=== PATIENT | female | born 1965 | race Caucasian/White ===

== ENCOUNTER 2019-05-06 21:34 | Inpatient (IN) | payer MEDICARE ==
[~2019-05-06] VITALS: Ht 162.6 cm; Wt 92.5 kg
--- OUTSIDE RECORDS SUMMARY | 2019-05-06 21:37 | XMS REPORT | Summary of Care ---
Author Author Paloma Lino Organization Unknown Address [facility] Phone Unavailable Care Team Providers Care Weed Controller Name Role Phone Holland Paloma Unavailable Unavailable ROSA LEYVA M.D. 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 * Start : 03-Feb-2018 Active 21 Tablet Pack Meloxicam TABS * Refills: 0 Active Cyclobenzaprine HCl TABS * Refills: 0 Active Adderall TABS * Refills: 0 Active Tylenol Extra Strength TABS * Refills: 0 Active Allergies and Adverse Reactions Name Dates Details No Known Drug Allergies (Allergy) Status: Active Past Medical History Name Dates Details History of arthritis (V13.4, Z87.39) Status: Resolved History of back pain (V13.59, Z87.39) Status: Resolved Procedures Procedure Dates Details History of Hysterectomy Completed Immunization Name Dates Details Immunizations not documented Family History Name Dates Details Family history of diabetes mellitus (V18.0, Z83.3) Comments: Family History Status: Active Family history of hypertension (V17.49, Z82.49) Comments: Family History Status: Active Family history of arthritis (V17.7, Z82.61) Comments: Family History Status: Active Social History Name Dates Details Unknown if ever smoked Vital Signs Date Test Result Details No Known Vitals to report Results Date Description Value Details Results not documented Plan of Care Name Dates Details Planned Observations Planned Goals not documented Instructions Name Dates Details Instructions not documented Encounters Appointment; ROSA LEYVA M.D. Encounter Diagnosis: Problem not documented On: 30-Dec-2017 10:30 Appointment; ROSA LEYVA M.D. Encounter Diagnosis: Problem not documented On: 03-Feb-2018 8:15 Appointment; ROSA LEYVA M.D. Encounter Diagnosis: Problem not documented On: 14-Apr-2018 8:45 Appointment; ROSA LEYVA M.D. Encounter Diagnosis: Problem not documented On: 20-Sep-2018 10:45
--- OUTSIDE RECORDS SUMMARY | 2019-05-06 21:37 | XMS REPORT | Encounter Summary ---
Author Organization Unknown Address [address] [place] [id number] Phone [phone] Care Team Providers Care Road Passenger Firer Name Role Phone Dr. Abraham Dumas 3 [phone] Lucrecia Shah MD 3 [phone] Eusebio Green MD 115 [phone] Phu Isaac MD 121 [phone] Sammy Haney MD 129 [phone] Cholo Allen MD 212 [phone] Reason for Visit Bilateral ear pain/problem Instructions 1. Staghorn calculus sulfamethoxazole 800 mg-trimethoprim 160 mg tablet urinalysis, dipstick culture, urine 2. Excessive cerumen in ear canal cerumen removal (PROC) 3. Body mass index 30+ - obesity body mass index: care instructions learning about healthy weight 4. Screening for malignant neoplasm of colon fecal occult blood, stool 5. Osteoarthritis of hip 6. Benign essential hypertension 7. Chronic pain syndrome Discussion Note: None recorded. Plan of Care Reminders Provider Appointments Est Patient 01/07/2019 10:30AM Lucrecia Shah MD Lab Fecal Occult Blood, Stool 11/19/2018 [facility] Laboratory Urinalysis, Dipstick 11/19/2018 [facility] Culture, Urine 11/19/2018 [facility] Referral None recorded. Procedures Cerumen Removal (PROC) 11/19/2018 [facility]) [place] Surgeries None recorded. Imaging None recorded. Medications Name Start Date Adderall 20 mg tablet Take 1 tablet twice a day by oral route for 30 days. amoxicillin 500 mg capsule bid atorvastatin 10 mg tablet Take 1 tablet every day by oral route for 90 days. chlorhexidine gluconate 0.12 % mouthwash SWISH AND SPIT 10 ML TWICE DAILY NEEDED fluticasone propionate 50 mcg/actuation nasal spray,suspension SHAKE LIQUID AND USE 1 SPRAY IN EACH NOSTRIL EVERY DAY NEEDED lisinopril 10 mg-hydrochlorothiazide 12.5 mg tablet Take 1 tablet every day by oral route. lubricant eye drops PRN Nasacort 24HR - PRN tizanidine 4 mg tablet TAKE 1 TABLET BY MOUTH EVERY 8 HOURS DIRECTED tramadol 50 mg tablet Take 1 tablet every 8 hours by oral route as needed. Tylenol PM 4 at night - otc zolpidem 10 mg tablet Take 1 tablet every day by oral route at bedtime. zolpidem 5 mg tablet Take 1 tablet every day by oral route for 30 days. Medications Administered None recorded. Vitals Height Weight BMI Blood Pressure 5 ft 4 in 209.8 lbs 36 kg/m2 (1) 120/84 mm[Hg] (2) 132/84 mm[Hg] Lab Results Date Name Specimen Result Interpretation Description Value Range Status Address 11/19/2018 Culture, Urine Culture, Urine, Routine see note Final [facility]: [address] [facility] [address], [place] 11/19/2018 Urinalysis, Dipstick Color Color yellow [facility] ([facility]) [place]: [address] [place] Color Appearance clear [facility] ([facility]) [place]: [address] [place] Color Glucose negative [facility] ([facility] [place]: [address] [place] Color Bilirubin small [facility] ([facility] [place]: [address] [place] Color Ketones [facility] ([facility] [place]: [address] [place] Color Specific [place] 1.030 [facility] ([facility] [place]: [address] [place] Color Blood moderate [facility] ([facility] [place]: [address] [place] Color PH 5.5 [facility] ([facility] [place]: [address] [place] Color Protein 30 [facility] ([facility]) [place]: [address] [place] Color Urobilinogen 0.2 [facility] ([facility]) [place]: [address] [place] Color Nitrites negative [facility] ([facility]) [place]: [address] [place] Color Leukocytes small [facility] ([facility]) [place]: [address] [place] [address] Color Note ketones 15 mg [facility] ([facility]) [place]: [address] [place] [address] 10/22/2018 Erythrocyte Sedimentation Rate by Westergren Method High Sed Rate by Modified Westergren 46 mm/h < or=30 mm/h Final [facility] Laboratory: [address] [place] [address] 10/22/2018 CBC W/ Auto Diff Wbc 8.60 x10*3/L 3.98-10.04 x10*3/L Final [facility]: [address] Rbc 4.14 10*12/L 3.93-5.22 10*12/L Final [facility] Laboratory: [address] Hemoglobin 12.40 g/dL 11.20-15.70 g/dL Final [facility] Laboratory: [address] Hematocrit 40.1 % 34.1-44.9 % Final [facility] Laboratory: [address] Mcv 96.9 fL 80.0-100.0 fL Final [facility]: [address] Mch 30.0 pg 25.6-32.2 pg Final [facility]: [address] Low Mchc 30.9 g/dL 32.2-35.5 g/dL Final [facility]: [address] RDW-SD 46.2 fL 36.4-46.3 fL Final [facility]: [address] Platelet Count 347.0 k/uL 182.0-369.0 k/uL Final [facility]: [address] Mpv 11.1 fL 7.5-11.5 fL Final [facility]: [address] Neut% 63.5 % 34.0-71.1 % Final [facility]: [address] Lymph% 29.5 % 19.3-51.7 % Final [facility]: [address] Mon% 5.3 % 4.7-12.5 % Final [facility]: [address] [place] Eos% 1.5 % 0.7-5.8 % Final [facility]: [address] [place] Baso% 0.2 % 0.1-1.2 % Final [facility]: [address] [place] Neut# 5.5 x10*3/L 1.6-6.1 x10*3/L Final [facility]: [address] [place] Lymph# 2.5 x10*3/L 1.2-3.7 x10*3/L Final [facility]: [address] [place] Mon# 0.5 x10*3/L 0.2-0.9 x10*3/L Final [facility] [address] [facility] Eos# 0.13 x10*3/L 0.04-0.36 x10*3/L Final [facility]: [address] [place] Baso# 0.02 x10*3/L 0.01-0.08 x10*3/L Final [facility] [address] [facility] 10/22/2018 CMP, Serum or Plasma Alt 13 U/L 0-55 U/L Final [facility]: [address] Ast 17 U/L 5-34 U/L Final [facility]: [address] [place] [address] Bun 13.9 mg/dL 9.8-20.1 mg/dL Final [facility] Laboratory: [address] [place] [address] Alk Phos 119 unit/L 40-150 unit/L Final [facility]: [address] [facility] Glucose 79 mg/dL 70-99 mg/dL Final [facility] [address] [facility] Albumin 4.4 g/dL 3.5-5.0 g/dL Final [facility]: [address] Creatinine 0.97 mg/dL 0.57-1.11 mg/dL Final [facility]: [address], [place] eGFR Non- >60 mL/min/1.73m2 Final [facility]: [address], [place] Total Bilirubin 0.5 mg/dL 0.2-1.2 mg/dL Final [facility]: [address] [place] eGFR - >60 mL/min/1.73m2 Final [facility]: [address], [place] Sodium 142 mEq/L 136-145 mEq/L Final [facility]: [address], [place] Potassium 4.1 mEq/L 3.5-5.1 mEq/L Final [facility]: [address], [place] Chloride 106 mmol/L 98-107 mmol/L Final [facility] Laboratory: [address], [place] Total Protein 7.4 g/dL 6.4-8.3 g/dL Final [facility]: [address], [place] Calcium 10.2 mg/dL 8.4-10.2 mg/dL Final [facility]: [address], [place] Co2 23.5 mmol/L 22.0-29.0 mmol/L Final [facility]: [address], [place] Anion Gap 13 calc Final [facility]: [address], [place] Allergies Code Code System Name Reaction Severity Status Onset NKDA Problems Name Status Onset Date Source Attention Deficit Hyperactivity Disorder Active 12/23/2017 Chronic Pain Syndrome Active 12/23/2017 Multiple Joint Pain Active 12/23/2017 Walking Disability Active 12/23/2017 Chronic Neck Pain Active 12/23/2017 Chronic Low Back Pain Active 12/23/2017 Paresthesia of Lower Extremity Active 12/23/2017 Body Mass Index 40+ - Severely Obese Active 12/23/2017 Mixed Hyperlipidemia Active 03/25/2018 Periodontitis Active 03/25/2018 Seasonal Allergic Rhinitis Active 07/23/2018 Benign Essential Hypertension Active 07/24/2018 Staghorn Calculus Active 08/28/2018 Osteoarthritis of Hip Active 08/28/2018 Procedures Date Name Performed by 07/20/2007 Orthopedic Surgery Information not available 07/20/2006 Orthopedic Surgery Information not available 07/20/1996 Hysterectomy (Partial) Information not available Vaccine List Vaccine Type influenza, injectable, quadrivalent 03/21/2017 influenza, injectable, quadrivalent, preservative free 04/29/20180.5 mL Social History Smoking Status Former Smoker Past Encounters 12/10/2018 Attention Deficit Hyperactivity Disorder; Staghorn Calculus; Body Mass Index 30+ - Obesity; Chronic Pain Syndrome; Referral to Embroidery Patternmaker Declined by Subject; Insomnia; Osteoarthritis of Hip; Benign Essential Hypertension; Mixed Hyperlipidemia Lucrecia Shah MD: [address] [place] [phone], Ph. 11/19/2018 Staghorn Calculus; Excessive Cerumen in Ear Canal; Body Mass Index 30+ - Obesity; Screening for Malignant Neoplasm of Colon; Osteoarthritis of Hip; Benign Essential Hypertension; Chronic Pain Syndrome Lucrecia Shah MD: [address] [place] [phone], Ph. 10/22/2018 Staghorn Calculus; Osteoarthritis of Hip; ESR Raised; Benign Essential Hypertension; Chronic Pain Syndrome; Body Mass Index 30+ - Obesity; Insomnia; Attention Deficit Hyperactivity Disorder; Screening for Malignant Neoplasm of Colon; Immunization Refused; Mixed Hyperlipidemia; Xerostomia Lucrecia Shah MD: [address] [place] [phone], Ph. History of Present Illness Note:53yo female presents for one-month follow-up. Last visit 10/22/18. <div>Here today with bilateral ear fullness & 'crackling' sound, possibly ear infection.</div><div>Recently finished Abx 11/06-11/16/18 Cipro for UTI. Has noticed heat & redness of skin of lower arms. No itch or hives. Ears also get very warm.</div><div>
</div><div>Next appt with urology, Dr Green on 12/02/18, for staghorn calculus of left kidney. Had lithotripsy of right kidney on 09/29/18. Still with intermittent, recurrent UTI infections. UA in office today with moderate blood, small wbcs. Will send urine for culture & cover with empiric Bactrim. Recently finished course of Cipro, but has known stone in left kidney. NKDA.</div><div>
</div><div>Previously:</div><div>On 09/29/18 had lithotripsy on right kidney for two small non-obstructing kidney stones in right kidney (8mm & 5mm). Was at [facility] with Dr Green, urologist. Had started amoxicillin the night prior for UTI- took for [address] Green in follow-up yesterday & he wants to repeat CT scan before trying to clear large partially obstructing 2.6cm left intrarenal staghorn calculus with moderate left cortical thinning suggesting chronic obstruction (per CT scan 08/24/18). Pt notes no stones seen in strainer.
</div><div><div>
</div><div> Pt had to postpone appt with Dr Cecil Gracia, ortho, for possible bilateral hip r eplacement surgeries. Was seen by ortho Dr Lala Allen, at [facility] and CT scan 08/24/18 was severe bilateral hip osteoarthritis with suspicion of early, bilateral femoral head ischemic necrosis. Dr Villa has referred pt to Dr Cecil Gracia.</div>< div><div><div>
</div><div>Previously:
</div><div>Pt had follow-up with Dr. Haney, neurology on Apr 20, 2018, for idiopathic polyneuropathy- per pt, both the MRI brain from 03/19/18 and the EMG/NCS on 04/13/18 were both normal. Per pt, Dr. Haney is wondering about movement disorder/chorea and has referred pt to [facility] Movement disorder clinic, Dr. Peace Bray for evaluation.
</div ><div>
</div><div>Was seen in past by pain management, Dr Federico Sewell at [facility].</div><div>Was seen in past by rheumatology (Dr Anderson) for elevated ESR. On prednisone in past. Had elevated ESR of 99 (was 68 in [facility] office in December 2017). </div><div>
</div><div>Needs tramadol & refill of tizanidine for pain. Was told to avoid NSAIDs due to kidney fxn by Dr Green - discontinue diclofenac
</div><div>Ortho said no more steroid injections until hip replacements at pain management.</div></div></div></div> Review of Systems:ROS as noted in the HPI Review of Systems Comprehensive General Adult ROS Reported By: Patient Constitutional: Constitutional: no fever Eyes: Eyes: no vision change ENMT: Ears: no difficulty hearing, ear pain Cardiovascular: Cardiovascular: no chest pain Respiratory: Respiratory: no cough, no wheezing, no shortness of breath Gastrointestinal: Gastrointestinal: no abdominal pain Genitourinary: Genitourinary: no incontinence, increased urinary frequency, hematuria Musculoskeletal: Musculoskeletal: muscle aches, muscle weakness, arthralgias/joint pain, back pain Neurologic: Neurologic: no loss of consciousness, no headaches Psychiatric: Psych: no depression, no alcohol abuse, no anxiety, no suicidal thoughts Physical Exam General Adult Exam (Female), Musculoskeletal and Joint Exam Reported By: Patient Constitutional: General Appearance: healthy-appearing, well-developed, obese. Level of Distress: NAD; Pleasant, conversant female. Appropriate to chronic situation. Ambulation: limited ambulation, ambulation with walker Psychiatric: Mental Status: active and alert, normal mood, normal affect Eyes: Lids and Conjunctivae: non-injected. Pupils: PERRLA. EOM: EOMI. Sclerae: non-icteric ENMT: Ears: EAC ceruminous. Hearing: hearing decreased. Oropharynx: moist mucous membranes Neck: Thyroid: non-tender, no nodules Lungs: Respiratory effort: no dyspnea. Auscultation: breath sounds normal, good air movement, no wheezing, no rales/crackles Cardiovascular: Heart Auscultation: RRR, normal S1, normal S2, no murmurs. Neck vessels: no carotid bruits Abdomen: Bowel Sounds: normal. Inspection and Palpation: soft Musculoskeletal:: Motor Strength and Tone: abnormal motor strength, hypotonicity. Joints, Bones, and Muscles: no contractures, limited ROM, tenderness. Extremities: no edema, no varicosities. Right Shoulder: tenderness, reduced ROM. Right Hip: reduced ROM, tenderness. Left Hip: reduced ROM, tenderness. Right Knee: reduced ROM. Left Knee: reduced ROM Neurologic: Gait and Station: irregular gait; significant limp. weakness r>l of legs Skin: Inspection and palpation: no rash
--- OUTSIDE RECORDS SUMMARY | 2019-05-06 21:37 | XMS REPORT | Encounter Summary ---
Author Organization Unknown Address [address] [place] [address] Phone [phone] Care Team Providers Care Candy Rolling Machine Operator Name Role Phone Dr. Abraham Dumas 3 [phone] Lucrecia Shah MD 3 [phone] Dr. Lucrecia Shah 3 [phone] Eusebio Green MD 115 [phone] Phu Isaac MD 121 [phone] Sammy Haney MD 129 [phone] Cholo Allen MD 212 [phone] Reason for Visit other - see typed reason Instructions 1. Attention deficit hyperactivity disorder Adderall 20 mg tablet Adderall 20 mg tablet Adderall 20 mg tablet 2. Body mass index 30+ - obesity body mass index: care instructions learning about healthy weight 3. Influenza vaccination Flublok Quad [id number] (PF) 180 mcg (45 mcg x 4)/0.5 mL IM syringe 4. Immunization Adacel (Tdap Adolesn/Adult)(PF)2 Lf-(2.5-5-3-5)-5 Lf/0.5 mL IM syringe 5. Benign essential hypertension 6. Staghorn calculus 7. Osteoarthritis of hip Discussion Note: None recorded. Plan of Care Reminders Provider Appointments Est Patient 05/27/2019 10:45AM Lucrecia Shah MD Lab None recorded. Referral None recorded. Procedures None recorded. Surgeries None recorded. Imaging None recorded. Medications Name Start Date Adderall 20 mg tablet Take 1 tablet twice a day by oral route for 30 days. atorvastatin 10 mg tablet Take 1 tablet every day by oral route for 90 days. chlorhexidine gluconate 0.12 % mouthwash SWISH AND SPIT 10 ML BY MOUTH TWICE DAILY NEEDED fluticasone propionate 50 mcg/actuation nasal spray,suspension SHAKE LIQUID AND USE 1 SPRAY IN EACH NOSTRIL EVERY DAY NEEDED lisinopril 10 mg-hydrochlorothiazide 12.5 mg tablet Take 1 tablet every day by oral route. lubricant eye drops PRN Nasacort 24HR - PRN omeprazole 40 mg capsule,delayed release Take 1 capsule every day by oral route in the morning. preservative free eye drops QD PRN ranitidine 150 mg tablet Take 1 tablet every day by oral route in the evening for 30 days. tizanidine 4 mg tablet TAKE 1 TABLET BY MOUTH EVERY 8 HOURS DIRECTED tramadol 50 mg tablet Take 1 tablet every 8 hours by oral route as needed. Tylenol PM 4 at night - otc zolpidem 10 mg tablet Take 1 tablet every day by oral route at bedtime. Medications Administered None recorded. Vitals Height Weight BMI Blood Pressure 5 ft 4 in 204.4 lbs 35.1 kg/m2 (1) 144/90 mm[Hg] (2) 116/72 mm[Hg] Lab Results None recorded. Allergies Code Code System Name Reaction Severity [...] Active 08/28/2018 Procedures Date Name Performed by 12/22/2018 Kidney Stone Analysis Information not available 07/20/2007 Orthopedic Surgery Information not available 07/20/2006 Orthopedic Surgery Information not available 07/20/1996 Hysterectomy (Partial) Information not available Vaccine List Vaccine Type influenza, injectable, quadrivalent 03/21/2017 influenza, injectable, quadrivalent, preservative free 04/29/20180.5 mL influenza, recombinant, quadrIvalent,injectable, preservative free 03/25/20190.5 mL Tdap 03/25/20190.5 mL Social History Tobacco Smoking Status Former Smoker Past Encounters 03/25/2019 Attention Deficit Hyperactivity Disorder; Body Mass Index 30+ - Obesity; Influenza Vaccination; Immunization; Benign Essential Hypertension; Staghorn Calculus; Osteoarthritis of Hip Lucrecia Shah MD: [address] [place] [address], Ph. 02/25/2019 Body Mass Index 30+ - Obesity; Obesity; Chronic Pain Syndrome; Attention Deficit Hyperactivity Disorder; Insomnia Lucrecia Shah MD: [address] [place] [address], Ph. History of Present Illness Note:53yo female presents for one-month follow-up. Last visit 02/25/19. Since last visit, pt saw Dr Green on 02/28/19 for follow-up. Was told she had calcium oxalate stones. Has brought one into office today that she collected on 03/15/19. At time of visit with Dr Green was found to have UTI - treated with cipro for 7days. No further symptoms of dysuria.<div>Will plan to have KUB, then f/u with Dr Green. Last ureteral stent on left placed 02/02/19 - will need to be removed. Needs release from Dr Green before following up on hip. Told to drink extra fluids - 3 liters/day of water is goal. Avoiding high oxalate food - less chocolate, peanuts.</div><div>Next visit with Dr Green on 04/25/19.</div><div> BP 116/72 in office today.
<div>Here for refill of Adderall. TPMP reviewed.< div>
<div>Previously:</div><div><div><div>Still with hip pain & waiting to f/u for first appt with Dr Cecil Gracia ortho [facility].</div><div>Pt had to postpone appt with korina Aguirre, for possible bilateral hip replacement surgeries. Was seen by ortho Dr Lala Allen, at [facility] and CT scan 08/24/18 was severe bilateral hip osteoarthritis with suspicion of early, bilateral femoral head ischemic necrosis. Dr Villa has referred pt to Dr Cecil Gracia. Ortho said no more steroid injections until hip replacements at pain management.</div><div>
</div><div>Previously:
</div><div><div>On 09/29/18 had lithotripsy on right kidney for two small non-obstructing kidney stones in right kidney (8mm & 5mm). Was at [facility] with Dr Green, urologist. Had CT scan with large p artially obstructing 2.6cm left intrarenal staghorn calculus with moderate left cortical thinning suggesting chronic obstruction (per CT scan 08/24/18). Pt notes no stones seen in strainer.
</div><div><div>
</div><div>Pt had follow-up with Dr. Haney, neurology on Apr 20, 2018, for idiopathic polyneuropathy- per pt, both the MRI brain from 03/19/18 and the EMG/NCS on 04/13/18 were both normal. Per pt, Dr. Haney is wondering about movement disorder/chorea and has referred pt to [facility] Movement disorder clinic, Dr. Peace Bray for evaluation.
</div><div><div>
</div><div>Was seen in past by pain management, Dr Federico Sewell at [facility].</div><div>Was seen in past by rheumatology (Dr Anderson) for elevated ESR. On prednisone in past. Had elevated ESR of 99 (was 68 in [facility] office in December 2017). </div></div></div></div></div><div>Seen by psych in past - Dr. Crow is no longer in pt's insurance network. Was with him for 12yrs. </div></div></div></div></div> Review of Systems:ROS as noted in the HPI Review of Systems Comprehensive General Adult ROS Reported By: Patient Constitutional: Constitutional: no fever Eyes: Eyes: no vision change Cardiovascular: Cardiovascular: no chest pain Respiratory: Respiratory: no cough, no wheezing, no shortness of breath Gastrointestinal: Gastrointestinal: no abdominal pain Musculoskeletal: Musculoskeletal: muscle aches, muscle weakness, arthralgias/joint [...] PERRLA. EOM: EOMI. Sclerae: non-icteric ENMT: Ears: EACs clear, TMs clear. Hearing: hearing decreased. Oropharynx: moist mucous membranes [...]
--- OUTSIDE RECORDS SUMMARY | 2019-05-06 21:37 | XMS REPORT | Encounter Summary ---
Author Organization Unknown Address [address] [place] [address] Phone [phone] Care Team Providers Care Upper Leather Sorter Name Role Phone Dr. Abraham Dumas 3 [phone] Lucrecia Shah MD 3 [phone] Eusebio Green MD 115 [phone] Phu Isaac MD 121 [phone] Sammy Haney MD 129 [phone] Cholo Allen MD 212 [phone] Reason for Visit Attention deficit hyperactivity disorder; Staghorn calculus; Chronic pain syndrome Instructions 1. Attention deficit hyperactivity disorder Adderall 20 mg tablet Adderall 20 mg tablet Adderall 20 mg tablet 2. Staghorn calculus 3. Body mass index 30+ - obesity body mass index: care instructions learning about healthy weight 4. Chronic pain syndrome tramadol 50 mg tablet 5. Referral to manager trust declined by subject 6. Insomnia zolpidem 10 mg tablet 7. Osteoarthritis of hip 8. Benign essential hypertension 9. Mixed hyperlipidemia Discussion Note: None recorded. Plan of Care Reminders Provider Appointments Est Patient 01/07/2019 10:30AM Lucrecia Shah MD Lab None recorded. Referral [...] BMI Blood Pressure 5 ft 4 in 211 lbs 36.2 kg/m2 116/82 mm[Hg] Lab Results Date Name Specimen Result Interpretation Description Value Range Status Address 11/19/2018 Culture, Urine Culture, Urine, Routine see note Final [facility]: [address] [facility] [address], [place] 11/19/2018 Urinalysis, Dipstick Color Color yellow [facility] ([facility]) [place]: [address] [place] Color Appearance clear [facility] ([facility]) [place]: [address] [place] Color Glucose negative [facility] ([facility]) [place]: [address] [place] Color Bilirubin small [facility] ([facility]) [place]: [address] [place] Color Ketones [facility] [place]: [address] [place] Color Specific [place] 1.030 [facility] [place]: [address] [place] Color Blood moderate [facility] [place]: [address] [place] Color PH 5.5 [facility] [place]: [address] [place] Color Protein 30 [facility] ([facility]) [place]: [address] [place] Color Urobilinogen 0.2 [facility] ([facility]) [place]: [address] [place] Color Nitrites negative [facility] ([facility]) [place]: [address] [place] Color Leukocytes small [facility] ([facility]) [place]: [address] [place] Color Note ketones 15 mg [facility] ([facility]) [place]: [address] [place] Allergies Code Code System Name Reaction Severity [...] - Obesity; Chronic Pain Syndrome; Referral to Carbon Brush Maker Declined by Subject; Insomnia; Osteoarthritis of Hip; Benign Essential Hypertension; Mixed Hyperlipidemia Lucrecia Shah MD: [address] [place] [address], Ph. 11/19/2018 Body Mass Index 30+ - Obesity; Screening for Malignant Neoplasm of Colon; Excessive Cerumen in Ear Canal; Staghorn Calculus Lucrecia Shah MD: [address] [place] [address], Ph. History of Present Illness Note:53yo female presents for one-month follow-up. Last visit 11/19/18. Since last vist, pt [place] renal scan on 11/23/18 - found no stone in right kidney (clear), but left kidney functioning at 20% with two large staghorn kidney stones on left. Saw Dr Green, urologist, on 12/02/18 and is scheduled on December 22 at 11am for left kidney lithotripsy at [facility] with preop on 12/20/18. Dr Green concerned that it may take 3-4 lithotripsy treatments to clear all the stones from the left kidney. Pt did not capture stone from right kidney lithotripsy for analysis. Hopes to catch stone this time.<div>Had urine infection at visit with Dr Green last & was started on amoxicillin 500mg bid this past .
<div>Grandson is turning 7yo on December 16. He lives with family near [place], but moving to [place] this summer.</div><div>Still with hip pain & waiting to f/u for first appt with Dr Cecil Gracia, ortho [facility].</div><div>Pt had to postpone appt with Dr Cecil Gracia, ortho, for possible bilateral hip r eplacement surgeries. Was seen by ortho Dr Lala Allen, at [facility] and CT scan 08/24/18 was severe bilateral hip osteoarthritis with suspicion of early, bilateral femoral head ischemic necrosis. Dr Villa has referred pt to Dr Cecil Gracia. Ortho s aid no more steroid injections until hip replacements at pain management.</div>< div>No ear pain today. No 'crackling' sound in ears. No fever.</div><div>
< /div><div>Has f/u with Dr Green on 01/06/19.</div><div>
</div><div>Here today for medication refill of Adderall, tramadol, and Ambien. TPMP reviewed. Trying to wean of Tylenol PM for sleep. .
</div><div><div>
</div><div> Previously:</div><div>On 09/29/18 had lithotripsy on right kidney for two small non-obstructing kidney stones in right kidney (8mm & 5mm). Was at [facility] with Dr Green, urologist. Had CT scan with large partially obstructing 2.6cm left intrarenal staghorn [...] movement disorder/chorea and has referred pt to [facility] Movement disorder clinic, Dr. Peace Bray for evaluation.
</div><div> <div>
</div><div>Was seen in past by pain management, Dr Federico Sewell at [facility].</div><div>Was seen in past by rheumatology (Dr Anderson) for elevated ESR. On prednisone in past. Had elevated ESR of 99 (was 68 in [facility] office in December 2017). </div></div></div></div></div><div>Seen by psych in past - Dr. Crow is no longer in pt's insurance network. Was with him for 12yrs. </div> Review of Systems:ROS as noted in the [...]
--- OUTSIDE RECORDS SUMMARY | 2019-05-06 21:37 | XMS REPORT | Encounter Summary ---
Author Organization Unknown Address [address] [place] [address] Phone [phone] Care Team Providers Care Top Icer Name Role Phone Dr. Abraham Dumas 3 [phone] Lucrecia Shah MD 3 [phone] Phu Isaac MD 121 [phone] Sammy Haney MD 129 [phone] Cholo Allen MD 212 [phone] Reason for Visit Right abdominal pain; nausea Instructions 1. Renal colic culture, urine tamsulosin 0.[address], abdomen + pelvis, w/o contrast - please schedule & contact our patient. thank you. urinalysis, dipstick 2. Body mass index 30+ - obesity body mass index: care instructions learning about healthy weight 3. Immunization 4. Chronic pain syndrome 5. Multiple joint pain 6. Attention deficit hyperactivity disorder 7. Benign essential hypertension 8. Body mass index 40+ - severely obese 9. Depressive disorder 10. Monoparesis - leg Discussion Note: None recorded. Plan of Care Reminders Provider Appointments Est Patient 09/21/2018 10:00AM Lucrecia Shah MD Lab Culture, Urine 08/20/2018 [facility] Urinalysis, Dipstick 08/20/2018 [facility] ([facility]) [place] Referral None recorded. Procedures None recorded. Surgeries None recorded. Imaging CT, Abdomen + Pelvis, W/o Contrast 08/20/2018 [facility] Medications Name Start Date atorvastatin 10 mg tablet TAKE 1 TABLET BY MOUTH EVERY DAY carbamide peroxide 6.5 % ear drops INSTILL 5 DROPS INTO AFFECTED EAR(S) BY OTIC ROUTE 2 TIMES PER DAY 08/27/2018 chlorhexidine gluconate 0.12 % mouthwash SWISH AND SPIT 10 ML TWICE DAILY NEEDED dextroamphetamine-amphetamine 20 mg tablet Take 1 tablet twice a day by oral route for 30 days. diclofenac ER 100 mg tablet,extended release 24 hr Take 1 tablet every day by oral route for 30 days. fluticasone 50 mcg/actuation nasal spray,suspension SHAKE LIQUID AND USE 1 SPRAY IN EACH NOSTRIL EVERY DAY NEEDED lisinopril 10 mg-hydrochlorothiazide 12.5 mg tablet Take 1 tablet every day by oral route. nasacort allergy 24 hour gener wxlxusec-lwefjaqmj-gjnrxtccf 3.5 mg-10,000 unit/mL-1 % ear drops,susp Instill 5 drops twice a day by otic route as needed. omeprazole 40 mg capsule,delayed release ranitidine 150 mg tablet tamsulosin 0.4 mg capsule Take 1 capsule every day by oral route. tizanidine 4 mg tablet TAKE 1 TABLET BY MOUTH EVERY 8 HOURS DIRECTED Medications Administered None recorded. Vitals Height Weight BMI Blood Pressure 5 ft 4 in 222 lbs 38.1 kg/m2 117/82 mm[Hg] Lab Results Date Name Specimen Result Interpretation Description Value Range Status Address 07/23/2018 Erythrocyte Sedimentation Rate by Westergren Method High Sed Rate by Modified Westergren 46 mm/h < or=30 mm/h Final [facility]: [facility] [address] 07/23/2018 CMP, Serum or Plasma Alt 14 U/L 0-55 U/L Final [facility]: [address] Ast 14 U/L 5-34 U/L Final [facility]: [address] High Bun 31.2 mg/dL 9.8-20.1 mg/dL Final [facility]: [address] [facility] [address] Alk Phos 131 unit/L 40-150 unit/L Final [facility]: [address] Glucose 99 mg/dL 70-99 mg/dL Final [facility]: [address] Albumin 4.5 g/dL 3.5-5.0 g/dL Final [facility]: [address] High Creatinine 1.42 mg/dL 0.57-1.11 mg/dL Final [facility]: [address] ABNORMAL eGFR Non- 39 mL/min/1.73m2 Final [facility]: [address] [place] [address] Total Bilirubin 0.5 mg/dL 0.2-1.2 mg/dL Final [facility]: [address] [facility], [place] ABNORMAL eGFR - 47 mL/min/1.73m2 Final [facility]: [address] [place] [address], [place] Sodium 143 mEq/L 136-145 mEq/L Final [facility]: [address] [place] [address], [place] High Potassium 5.4 mEq/L 3.5-5.1 mEq/L Final [facility]: [address] [place] [address], [place] Chloride 107 mmol/L 98-107 mmol/L Final [facility]: [address] [place] [address], [place] Total Protein 7.9 g/dL 6.4-8.3 g/dL Final [facility]: [address] [place] [address], [place] High Calcium 10.7 mg/dL 8.4-10.2 mg/dL Final [facility]: [address] Co2 26.8 mmol/L 22.0-29.0 mmol/L Final [facility]: [address] Anion Gap 9 calc Final [facility]: [address] [place] [address], [place] 07/23/2018 Lipid Panel, Serum Hdl 54 mg/dL 40-60 mg/dL Final [facility]: [address] Triglyceride 114 mg/dL 0-149 mg/dL Final [facility]: [address] VLDL Calc. 23 mg/dL Final [facility]: [address] cholesterol/HDL Ratio 2.9 mg/dL Final [facility]: [address] non-HDL Cholesterol Calc. 105 mg/dL 0-160 mg/dL Final [facility]: [address] Cholesterol 159 mg/dL 0-199 mg/dL Final [facility]: [address] [place] [address], [place] LDL Calc. 82 mg/dL 0-130 mg/dL Final [facility]: [address] [place] [address], [place] Urinalysis, Dipstick No observation recorded. [facility] ([facility]) [place]: [address] [facility] Allergies Code Code System Name Reaction Severity [...] available 07/20/1996 Hysterectomy (Partial) Information not available 08/20/2018 CT, Abdomen + Pelvis, W/o Contrast [facility] [address] [place] [address] ([address]) Vaccine List Vaccine Type influenza, injectable, quadrivalent 03/21/2017 influenza, injectable, quadrivalent, preservative free 04/29/20180.5 mL Social History Smoking Status Former Smoker (1 PPW) Past Encounters 08/27/2018 Staghorn Calculus; Osteoarthritis of Hip; Chronic Pain Syndrome; Attention Deficit Hyperactivity Disorder; Immunization; Body Mass Index 30+ - Obesity; Otitis Externa; Body Mass Index 40+ - Severely Obese; Depressive Disorder; Monoparesis - Leg Lucrecia Shah MD: [address] [place] [address], Ph. 08/20/2018 Renal Colic; Body Mass Index 30+ - Obesity; Immunization; Chronic Pain Syndrome; Multiple Joint Pain; Attention Deficit Hyperactivity Disorder; Benign Essential Hypertension; Body Mass Index 40+ - Severely Obese; Depressive Disorder; Monoparesis - Leg Lucrecia Shah MD: [address] [place] [address], Ph. 07/23/2018 Esophageal Dysphagia; Benign Essential Hypertension; Body Mass Index 30+ - Obesity; Chronic Pain Syndrome; Mixed Hyperlipidemia; Periodontitis; Chronic Low Back Pain; Multiple Joint Pain; Attention Deficit Hyperactivity Disorder; Seasonal Allergic Rhinitis Lucrecia Shah MD: [address] [place] [address], Ph. History of Present Illness Abdominal Pain Reported By: Patient Abdominal Pain: Location: RLQ, radiating. Quality: pain, cramping, sharp, stabbing; throbbing. Severity: severe, pain level 8/10. Duration: constant, started:. Onset/Timing: worse. Modifying Factors: ; ice helped on Thu. Associated Symptoms: no fever, no chills, no blood in the urine, no heartburn, no shortness of breath, no diarrhea, no constipation, no change in stool, nausea, vomiting. Other: denies possible Note:52yo female presents for evaluation of left back/LLQ pain for past 2 days. Constant, throbbing pain. Started in back. Tried ice to back on Thursday thinking it was muscle strain. Doesn't feel like UTI. No fever, vaginal discharge, no diarrhea, constipation, blood in stool. Did have nausea last night & vomited twice from pain. Rates pain at 8/10 intensity. No prior hx of kidney stone.<div>
</div><div>Since last visit, pt saw Dr Guevara, ENT. He did nasal endoscopy & nothing found in throat. Thought her symptoms may be from reflux, so added ranitidine 150mg qpm & omeprazole 40mg qam. Has f/u appt on 09/02/[address] Guevara.</div><div>
</div><div>Since last visit, pt had f/u appt with rheum, Dr Anderson regarding elevated ESR. Pt does not want to discontinue Adderall. Elevated sed rate could be related to dental work. Did not have teeth extracted - got lost on way to dentist at [facility]. Dr Anderson wants return appt in 6mo. Last ESR 46 on 07/23/18.</div><div>
</div> Review of Systems:ROS as noted in [...] Appearance: healthy-appearing, well-developed, obese. Level of Distress: mild distress, acutely ill; appears uncomfortable. Ambulation: limited ambulation, ambulation with walker Psychiatric: Mental Status: active and alert, normal mood, normal affect Eyes: Lids and Conjunctivae: non-injected. Pupils: PERRLA. EOM: EOMI. Sclerae: non-icteric ENMT: Hearing: hearing decreased. Oropharynx: moist mucous membranes Neck: Thyroid: non-tender, no nodules Lungs: Respiratory effort: no dyspnea. Auscultation: breath sounds normal, good air movement, no wheezing, no rales/crackles Cardiovascular: Heart Auscultation: RRR, normal S1, normal S2, no murmurs. Neck vessels: no carotid bruits Abdomen: Bowel Sounds: normal. Inspection and Palpation: soft, non-distended, no guarding, no rebound tenderness, no masses, RLQ tenderness, CVA tenderness; Right sided CVA tenderness to RLQ Musculoskeletal:: Motor Strength and Tone: abnormal motor strength. Joints, Bones, and Muscles: no contractures, limited ROM, tenderness. Extremities: no edema, no varicosities. Right Shoulder: tenderness, reduced ROM. Right Knee: reduced ROM. Left Knee: reduced ROM Neurologic: Gait and Station: irregular gait; significant limp. weakness r>l of legs Skin: Inspection and palpation: no rash
--- OUTSIDE RECORDS SUMMARY | 2019-05-06 21:37 | XMS REPORT | Encounter Summary ---
Author Organization Unknown Address [address] [place] [address] Phone [phone] Care Team Providers Care Commissioner Conservation Of Resources Name Role Phone Dr. Abraham Dumas 3 [phone] Lucrecia Shah MD 3 [phone] Phu Isaac MD 121 [phone] Sammy Haney MD 129 [phone] Cholo Allen MD 212 [phone] Reason for Visit Mixed hyperlipidemia; Attention deficit hyperactivity disorder; Chronic pain syndrome; Benign essential hypertension Instructions 1. Staghorn calculus CBC w/ auto diff CMP, serum or plasma 2. Osteoarthritis of hip 3. ESR raised erythrocyte sedimentation rate by westergren method 4. Benign essential hypertension 5. Chronic pain syndrome tramadol 50 mg tablet tizanidine 4 mg tablet 6. Body mass index 30+ - obesity body mass index: care instructions learning about healthy weight 7. Insomnia zolpidem 5 mg tablet 8. Attention deficit hyperactivity disorder Adderall 20 mg tablet 9. Screening for malignant neoplasm of colon 10. Immunization refused 11. Mixed hyperlipidemia atorvastatin 10 mg tablet 12. Xerostomia chlorhexidine gluconate 0.12 % mouthwash Discussion Note: None recorded. Plan of Care Reminders Provider Appointments Return to Office on or around 11/19/2018 Lucrecia Shah MD Lab CBC W/ Auto Diff 10/22/2018 [facility] CMP, Serum or Plasma 10/22/2018 [facility] Erythrocyte Sedimentation Rate by Westergren Method 10/22/2018 [facility] Referral None recorded. Procedures None recorded. Surgeries None recorded. Imaging None recorded. Medications Name Start Date atorvastatin 10 mg tablet Take 1 tablet every day by oral route for 90 days. chlorhexidine gluconate 0.12 % mouthwash SWISH AND SPIT 10 ML TWICE DAILY NEEDED dextroamphetamine-amphetamine 20 mg tablet Take 1 tablet twice a day by oral route for 30 days. fluticasone propionate 50 mcg/actuation nasal spray,suspension SHAKE LIQUID AND USE 1 SPRAY IN EACH NOSTRIL EVERY DAY NEEDED lisinopril 10 mg-hydrochlorothiazide 12.5 mg tablet Take 1 tablet every day by oral route. lubricant eye drops PRN Nasacort 24HR - PRN pgccknkx-dnonbaqnv-sebdiyedn 3.5 mg-10,000 unit/mL-1 % ear drops,susp Instill 5 drops twice a day by otic route as needed. tizanidine 4 mg tablet TAKE 1 TABLET BY MOUTH EVERY 8 HOURS DIRECTED tramadol 50 mg tablet Take 1 tablet every 8 hours by oral route as needed. zolpidem 5 mg tablet Take 1 tablet every day by oral route for 30 days. Medications Administered None recorded. Vitals Height Weight BMI Blood Pressure 5 ft 4 in 211 lbs 36.2 kg/m2 (1) 146/94 mm[Hg] (2) 138/86 mm[Hg] Lab Results None recorded. Allergies Code [...] Status Former Smoker (1 PPW) Past Encounters 10/22/2018 Staghorn Calculus; Osteoarthritis of Hip; ESR Raised; Benign Essential Hypertension; Chronic Pain Syndrome; Body Mass Index 30+ - Obesity; Insomnia; Attention Deficit Hyperactivity Disorder; Screening for Malignant Neoplasm of Colon; Immunization Refused; Mixed Hyperlipidemia; Xerostomia Lucrecia Shah MD: [address] [place] [address], Ph. 09/21/2018 Staghorn Calculus; Attention Deficit Hyperactivity Disorder; Osteoarthritis of Hip; Body Mass Index 30+ - Obesity; Immunization Refused; Mammogram Declined; Colon Cancer Screening Declined; Chronic Pain Syndrome; Body Mass Index 40+ - Severely Obese; Depressive Disorder; Monoparesis - Leg; Insomnia Lucrecia Shah MD: [address] [place] [address], Ph. History of Present Illness Note:52yo female presents for one-month follow-up. Last visit 09/21/18. Needs medication refill of Adderall.<div>Since last visit on 09/29/18 had lithotripsy on right kidney for two small non-obstructing kidney stones in right kidney (8mm & 5mm). Was at [facility] with Dr Green, urologist. Had started amoxicillin the night prior for UTI- took for [address] Green in follow- up yesterday & he wants to repeat CT scan before trying to clear large partially obstructing 2.6cm left intrarenal staghorn calculus with moderate left cortical thinning suggesting chronic obstruction (per CT scan 08/24/18). Pt notes no stones seen in strainer.</div><div>
</div><div>Pt had to postpone appt with Dr Cecil Gracia, ortho, for possible bilateral hip replacement surgeries. Was seen by ortho Dr Lala Allen, at [facility] and CT scan 08/24/18 was severe bilateral hip osteoarthritis with suspicion of early, bilateral femoral head ischemic necrosis. Dr Villa has referred pt to Dr Cecil Gracia.</div><div><div><div>
</div><div>Previously:
</div><div>Pt had follow-up with Dr. Haney, neurology on Apr 20, 2018, for idiopathic polyneuropathy- per pt, both the MRI brain from 03/19/18 and the EMG/NCS on 04/13/18 were both normal. Per pt, Dr. Haney is wondering about movement disorder/chorea and has referred pt to [facility] Movement disorder clinic, Dr. Peace Bray for evaluation.
</div><div>
</div><div>Was seen in past by pain management, Dr Federico Sewell at [facility].</div><div>Was seen in past by [...] steroid injections until hip replacements at pain management.</div></div></div> Review of Systems:ROS as noted in the [...]
--- OUTSIDE RECORDS SUMMARY | 2019-05-06 21:37 | XMS REPORT | Encounter Summary ---
Author Organization Unknown Address [address] [place] [address] Phone [phone] Care Team Providers Care Traffic Maintenance Officer Name Role Phone Dr. Abraham Dumas 3 [phone] Lucrecia Shah MD 3 [phone] Phu Isaac MD 121 [phone] Sammy Haney MD 129 [phone] Cholo Allen MD 212 [phone] Reason for Visit Chronic pain syndrome; other - see typed reason Instructions 1. Staghorn calculus 2. Attention deficit hyperactivity disorder Adderall 20 mg tablet 3. Osteoarthritis of hip 4. Body mass index 30+ - obesity body mass index: care instructions learning about healthy weight 5. Immunization refused 6. Mammogram declined 7. Colon cancer screening declined 8. Chronic pain syndrome tizanidine 4 mg tablet tramadol 50 mg tablet 9. Body mass index 40+ - severely obese 10. Depressive disorder 11. Monoparesis - leg 12. Insomnia zolpidem 5 mg tablet Discussion Note: None recorded. Plan of Care Reminders Provider Appointments Est Patient 10/22/2018 10:15AM Lucrecia Shah MD Lab None recorded. Referral [...] eye drops PRN Nasacort 24HR - PRN bnsdrunj-oreawyjqk-fvmnqfqcu 3.5 mg-10,000 unit/mL-1 % ear drops,susp Instill 5 drops twice a day by otic route as needed. tamsulosin 0.4 mg capsule Take 1 capsule every day by oral route. tizanidine 4 mg tablet Take 1 tablet every 8 hours by oral route for 30 days. tramadol 50 mg tablet Take 1 tablet every 8 hours by oral route as needed. zolpidem 5 mg tablet Take 1 tablet every day by oral route. Medications Administered None recorded. Vitals Height Weight BMI Blood Pressure 5 ft 4 in 222 lbs 38.1 kg/m2 (1) 150/96 mm[Hg] (2) 142/92 mm[Hg] Lab Results Date Name Specimen Result Interpretation Description Value Range Status Address Urinalysis, Dipstick No observation recorded. [facility] [place]: [address] [place] [address] Allergies Code Code System Name Reaction Severity [...] Status Former Smoker (1 PPW) Past Encounters 09/21/2018 Staghorn Calculus; Attention Deficit Hyperactivity Disorder; Osteoarthritis of Hip; Body Mass Index 30+ - Obesity; Immunization Refused; Mammogram Declined; Colon Cancer Screening Declined; Chronic Pain Syndrome; Body Mass Index 40+ - Severely Obese; Depressive Disorder; Monoparesis - Leg; Insomnia Lucrecia Shah MD: [address] [place] [address], Ph. 08/27/2018 Staghorn Calculus; Osteoarthritis of Hip; Chronic Pain Syndrome; Attention Deficit Hyperactivity Disorder; Immunization; Body Mass Index 30+ - Obesity; Otitis Externa; Body Mass Index 40+ - Severely Obese; Depressive Disorder; Monoparesis - Leg Lucrecia Shah MD: [address] [place] [address], Ph. History of Present Illness Note:52yo female presents for one-month follow-up. Last visit 08/27/18. Needs medication refill of Adderall.<div>
<div>Yesterday morning, saw ortho Dr Sandip Allen, at [facility]. CT scan 08/24/18 was severe bilateral hip osteoarthirits with suspicion of early, bilateral femoral head ischemic necrosis. Dr Villa has referred pt to Dr Cecil Gracia for possible bilateral hip replacement. Appt 10/20/[address] Gracia.</div><div>
</div><div>Yesterday afternoon, saw Dr Green, urologist. Went to [facility] on 08/[address] abd/pelvis which showed two small non-obstructing kidney stones in right kidney (8mm & 5mm) and one large partially obstructin 2.6cm left intrarenal staghorn calculus with moderate left cortical thinning suggesting chronic obstruction.</div><div>Next appt in October 2018.</div><div>Needs tramadol & refill of tizanidine for pain. Was told to avoid NSAIDs due to kidney fxn by Dr Green - discontinue diclofenac</div><div>Ortho said no more steroid injections until hip replacements at pain management.</div></div> Review of Systems:ROS as noted in the [...]
--- OUTSIDE RECORDS SUMMARY | 2019-05-06 21:37 | XMS REPORT | Encounter Summary ---
Author Organization Unknown Address [address] [place] [address] Phone [phone] Care Team Providers Care Freight Manager Name Role Phone Dr. Abraham Dumas 3 [phone] Lucrecia Shah MD 3 [phone] Phu Isaac MD 121 [phone] Sammy Haney MD 129 [phone] Cholo Allen MD 212 [phone] Reason for Visit other - see typed reason Instructions 1. Staghorn calculus urology referral - Please schedule & contact our patient. thank you. tamsulosin 0.4 mg capsule 2. Osteoarthritis of hip orthopedic referral - Please schedule & contact our patient. Thank you 3. Chronic pain syndrome tizanidine 4 mg tablet 4. Attention deficit hyperactivity disorder Adderall 20 mg tablet 5. Immunization 6. Body mass index 30+ - obesity body mass index: care instructions learning about healthy weight 7. Otitis externa jyzinehs-qalexjmta-lhuzbldkc 3.5 mg-10,000 unit/mL-1 % ear drops,susp 8. Body mass index 40+ - severely obese 9. Depressive disorder 10. Monoparesis - leg Discussion Note: None recorded. Plan of Care Reminders Provider Appointments Est Patient 09/21/2018 10:00AM Lucrecia Shah MD Lab None recorded. Referral Orthopedic Referral 08/27/2018 Cholo Allen MD Urology Referral 08/27/2018 Eusebio Green MD Procedures None recorded. Surgeries None recorded. Imaging [...] oral route. nasacort allergy 24 hour gener imelyhxw-prqbdnfvs-uenqbruou 3.5 mg-10,000 unit/mL-1 % ear drops,susp Instill [...] ft 4 in 222 lbs 38.1 kg/m2 140/80 mm[Hg] Lab Results Date Name Specimen Result Interpretation Description Value Range Status Address Urinalysis, Dipstick No observation recorded. [facility] [place]: [address] [place] [address] Allergies Code Code System Name Reaction Severity [...] 08/20/2018 CT, Abdomen + Pelvis, W/o Contrast [facility] [address] [place] [address] (Work Place) Vaccine List Vaccine Type [...] Monoparesis - Leg Lucrecia Shah MD: [address] [place] [address], Ph. 08/20/2018 Renal Colic; Body Mass Index 30+ - Obesity; Immunization; Chronic Pain Syndrome; Multiple Joint Pain; Attention Deficit Hyperactivity Disorder; Benign Essential Hypertension Lucrecia Shah MD: [address] [place] [address], Ph. History of Present Illness Note:52yo female presents for one-week follow-up. Last visit was last Thursday08/20/18. Since that visit, pt had f/u appt with pain management on Wednesday 08/23. Went to [facility] on 08/[address] abd/pelvis which showed two small non-obstructing kidney stones in right kidney (8mm & 5mm) and one large partially obstructin 2.6cm left intrarenal staghorn calculus with moderate left cortical thinning suggesting chronic obstruction.<div>Also noted on CT scan 08/24/18 was severe bilateral hip osteoarthirits with suspicion of early, bilateral femoral head ischemic necrosis. Pt has seen ortho, Dr Lala Allen at [facility].</div><div>Pt has been doing better symptom-kong. Taking Flomax and drinking extra water. No fever, dysuria, or blood in urine. No vaginal discharge.</div><div>Copy of CT scan printed & reviewed with pt. Encouraged her to take report to both urology & ortho.</div> Review of Systems:ROS as noted in the [...]
--- OUTSIDE RECORDS SUMMARY | 2019-05-06 21:37 | XMS REPORT | Encounter Summary ---
Author Organization Unknown Address [address] [place] [address] Phone [phone] Care Team Providers Care Post Manager Name Role Phone Dr. Abraham Dumas 3 [phone] Lucrecia Shah MD 3 [phone] Eusebio Green MD 115 [phone] Phu Isaac MD 121 [phone] Sammy Haney MD 129 [phone] Cholo Allen MD 212 [phone] Reason for Visit Mixed hyperlipidemia; Attention deficit hyperactivity disorder; Benign essential hypertension Instructions 1. Staghorn calculus 2. Osteoarthritis of hip 3. Benign essential hypertension 4. Mixed hyperlipidemia 5. Body mass index 30+ - obesity body mass index: care instructions learning about healthy weight 6. Attention deficit hyperactivity disorder 7. Chronic pain syndrome 8. Insomnia Discussion Note: None recorded. Plan of Care Reminders Provider Appointments Est Patient 02/25/2019 10:15AM Lucrecia Shah MD Lab None recorded. [...] BMI Blood Pressure 5 ft 4 in 205 lbs 35.2 kg/m2 (1) 180/102 mm[Hg] (2) 142/98 mm[Hg] Lab Results None recorded. Allergies Code [...] History Smoking Status Former Smoker Past Encounters 01/07/2019 Staghorn Calculus; Osteoarthritis of Hip; Benign Essential Hypertension; Mixed Hyperlipidemia; Body Mass Index 30+ - Obesity; Attention Deficit Hyperactivity Disorder; Chronic Pain Syndrome; Insomnia Lucrecia Shah MD: [address] [place] [address], Ph. 12/10/2018 Attention Deficit Hyperactivity Disorder; Staghorn Calculus; Body Mass Index 30+ - Obesity; Chronic Pain Syndrome; Referral to Medical Office Representative Declined by Subject; Insomnia; Osteoarthritis of Hip; Benign Essential Hypertension; Mixed Hyperlipidemia Lucrecia Shah MD: [address] [place] [address], Ph. History of Present Illness Note:53yo female presents for one-month follow-up. Last visit 12/10/18. Pt was on amoxicillin for UTI from urologist, Dr Green at last visit. Infection cleared & pt had lithotripsy on left kidney with ureteral stent placed at [facility] on 12/22/18. Pt is having some cramping with urination on left side. Pt saw Dr Green yesterday 01/06/19. He would like KUB as soon as possible to plan next lithotripsy if needed in January 2019. Not on antibiotic currently. Did give urine specimen yesterday at Dr Green's office.<div>Pt measuring home blood pressures - all bp <140/90 at home.</div><div>Next scheduled office visit with Dr Green on 02/24/19, but waiting to see KUB results before scheduling repeat lithotripsy or stent removal in January 2019.</div><div>Had three phone calls from Dr Isaac's office (Dr Anderson). Declined appt - planning to get hip replacements with Dr Cecil Gracia after kidney issues resolved.</div><div>
< div>Previously:</div><div><div><div>Still with hip pain & waiting to f/u for first appt with Dr Cecil Gracia ortho [facility].</div><div>Pt had to postpone appt with Dr Cecil Gracia, ortho, for possible bilateral hip replacement surgeries. Was seen by ortho Dr Lala Allen, at [facility] and CT scan 08/24/18 was severe bilateral hip osteoarthritis with suspicion of early, bilateral femoral head ischemic necrosis. Dr Villa has referred pt to Dr Cecil Gracia. Ortho said no more steroid injections until hip replacements at pain management.</div><div>No ear pain today. No 'crackling' sound in ears. No fever.</div><div>
</div><div> Previously:
</div><div><div>On 09/29/18 had lithotripsy on right kidney for two small non-obstructing kidney stones in right kidney (8mm & 5mm). Was at [facility] with Dr Green, urologist. Had CT scan [...] movement disorder/chorea and has referred pt to [facility] Movement disorder clinic, Dr. Peace Bray for evaluation.
</div ><div><div>
</div><div>Was seen in past by pain management, Dr Federico Sewell at [facility].</div><div>Was seen in past by rheumatology (Dr Anderson) for elevated ESR. On prednisone in past. Had elevated ESR of 99 (was 68 in [facility] office in December 2017). </div></div></div></div></div><div>Seen by psych in past - Dr. Crow is no longer in pt's insurance network. Was with him for 12yrs. </div></div></div> Review of Systems:ROS as noted in the [...]
--- OUTSIDE RECORDS SUMMARY | 2019-05-06 21:37 | XMS REPORT | Encounter Summary ---
Author Organization Unknown Address [address] [place] [address] Phone [phone] Care Team Providers Care Child Care Coordinator Name Role Phone Dr. Abraham Dumas 3 [phone] Lucrecia Shah MD 3 [phone] Eusebio Green MD 115 [phone] Phu Isaac MD 121 [phone] Sammy Haney MD 129 [phone] Cholo Allen MD 212 [phone] Reason for Visit Bilateral ear pain/problem Instructions [...] MD Lab Fecal Occult Blood, Stool 11/19/2018 [facility] Urinalysis, Dipstick 11/19/2018 [facility] Culture, Urine 11/19/2018 [facility] Referral None recorded. Procedures Cerumen Removal (PROC) 11/19/2018 [facility] ([facility]) [place] Surgeries None recorded. Imaging None recorded. Medications [...] Urine Culture, Urine, Routine see note Final [facility]: [address] [facility] 418, [place] 11/19/2018 Urinalysis, Dipstick Color Color yellow [facility] ([facility]) [place]: [address] [place] Color Appearance clear [facility] ([facility]) [place]: [address] [place] Color Glucose negative [facility] ([facility]) [place]: [address] [place] Color Bilirubin small [facility] ([facility]) [place]: [address] [place] Color Ketones [facility] ([facility] [place]: [address] [place] Color Specific [place] 1.030 [facility] ([facility] [place]: [address] [place] Blood moderate [facility] ([facility] [place]: [address] [place] Color PH 5.5 [facility] ([facility] [place]: [address] [place] Color Protein 30 [facility] ([facility]) [place]: [address] [place] Color Urobilinogen 0.2 [facility] ([facility]) [place]: [address] [place] Color Nitrites negative [facility] ([facility]) [place]: [address] [place] Color Leukocytes small [facility] ([facility]) [place]: [address] [place] [address] Color Note ketones 15 mg [facility] ([facility]) [place]: [address] [place] [address] 10/22/2018 Erythrocyte Sedimentation Rate by Westergren Method High Sed Rate by Modified Westergren 46 mm/h < or=30 mm/h Final [facility]: [address] [place] [address] 10/22/2018 CBC W/ Auto Diff Wbc 8.60 x10*3/L 3.98-10.04 x10*3/L Final [facility]: [address] Rbc 4.14 10*12/L 3.93-5.22 10*12/L Final [facility] Laboratory: [address] Hemoglobin 12.40 g/dL 11.20-15.70 g/dL Final [facility]: [address] Hematocrit 40.1 % 34.1-44.9 % Final [facility]: [address] Mcv 96.9 fL 80.0-100.0 fL Final [facility]: [address] Mch 30.0 pg 25.6-32.2 pg Final [facility]: [address] Low Mchc 30.9 g/dL 32.2-35.5 g/dL Final [facility]: [address] RDW-SD 46.2 fL 36.4-46.3 fL Final [facility]: [address] Platelet Count 347.0 k/uL 182.0-369.0 k/uL Final [facility]: [address] Mpv 11.1 fL 7.5-11.5 fL Final [facility]: [address] Neut% 63.5 % 34.0-71.1 % Final [facility]: [address] Lymph% 29.5 % 19.3-51.7 % Final [facility]: [address] Mon% 5.3 % 4.7-12.5 % Final [facility]: [address] [place] Eos% 1.5 % 0.7-5.8 % Final [facility]: [address] [place] Baso% 0.2 % 0.1-1.2 % Final [facility]: [address] [place] Neut# 5.5 x10*3/L 1.6-6.1 x10*3/L Final [facility]: [address] [place] Lymph# 2.5 x10*3/L 1.2-3.7 x10*3/L Final [facility]: [address] [place] Mon# 0.5 x10*3/L 0.2-0.9 x10*3/L Final [facility] [address] [facility] Eos# 0.13 x10*3/L 0.04-0.36 x10*3/L Final [facility]: [address] [place] Baso# 0.02 x10*3/L 0.01-0.08 x10*3/L Final [facility] [address] [facility] 10/22/2018 CMP, Serum or Plasma Alt 13 U/L 0-55 U/L Final [facility]: [address] Ast 17 U/L 5-34 U/L Final [facility]: [address] [place] [address] Bun 13.9 mg/dL 9.8-20.1 mg/dL Final [facility]: [address] [place] [address] Alk Phos 119 unit/L 40-150 unit/L Final [facility]: [address] [facility] Glucose 79 mg/dL 70-99 mg/dL Final [facility]: [address] [facility] Albumin 4.4 g/dL 3.5-5.0 g/dL Final [facility]: [address] Creatinine 0.97 mg/dL 0.57-1.11 mg/dL Final [facility]: [address], [place] eGFR Non- >60 mL/min/1.73m2 Final [facility]: [address], [place] Total Bilirubin 0.5 mg/dL 0.2-1.2 mg/dL Final [facility]: [address] [place] eGFR - >60 mL/min/1.73m2 Final [facility]: [address], [place] Sodium 142 mEq/L 136-145 mEq/L Final [facility]: [address], [place] Potassium 4.1 mEq/L 3.5-5.1 mEq/L Final [facility]: [address], [place] Chloride 106 mmol/L 98-107 mmol/L Final [facility]: [address], [place] Total Protein 7.4 g/dL 6.4-8.3 g/dL Final [facility]: [address], [place] Calcium 10.2 mg/dL 8.4-10.2 mg/dL Final [facility]: [address], [place] Co2 23.5 mmol/L 22.0-29.0 mmol/L Final [facility]: [address], [place] Anion Gap 13 calc Final [facility]: [address], [place] Allergies Code Code System Name Reaction Severity [...] - Obesity; Chronic Pain Syndrome; Referral to Graphics Specialist Declined by Subject; Insomnia; Osteoarthritis of Hip; Benign Essential Hypertension; Mixed Hyperlipidemia Lucrecia Shah MD: [address] [place] [phone], Ph. 11/19/2018 Staghorn Calculus; Excessive Cerumen in Ear Canal; Body Mass Index 30+ - Obesity; Screening for Malignant Neoplasm of Colon; Osteoarthritis of Hip; Benign Essential Hypertension; Chronic Pain Syndrome Lucrecia Shah MD: [address] [place] [phone], Ph. 10/22/2018 Staghorn Calculus; Osteoarthritis of Hip; ESR Raised; Benign Essential Hypertension; Chronic Pain Syndrome; Body Mass Index 30+ - Obesity; Insomnia; Attention Deficit Hyperactivity Disorder; Screening for Malignant Neoplasm of Colon; Immunization Refused; Mixed Hyperlipidemia; Xerostomia Lucrecia Shah MD: [address] [place] [phone], Ph. History of Present Illness Note:53yo female [...] right kidney (8mm & 5mm). Was at [facility] with Dr Green, urologist. Had [...] seen by ortho Dr Lala Allen, at [facility] and CT scan 08/24/18 was severe [...] by pain management, Dr Federico Sewell at [facility].</div><div>Was seen in past [...]
--- OUTSIDE RECORDS SUMMARY | 2019-05-06 21:38 | XMS REPORT | Encounter Summary ---
Author Organization Unknown Address [address] [place] [address] Phone [phone] Care Team Providers Care Tool Room Machinist Name Role Phone Dr. Abraham Dumas 3 [phone] Lucrecia Shah MD 3 [phone] Dr. Lucrecia Shah 3 [phone] Eusebio Green MD 115 [phone] Phu Isaac MD 121 [phone] Sammy Haney MD 129 [phone] Cholo Allen MD 212 [phone] Reason for Visit Attention deficit hyperactivity disorder; Chronic pain syndrome Instructions 1. Staghorn calculus 2. Chronic pain syndrome tramadol 50 mg tablet 3. Body mass index 30+ - obesity body mass index: care instructions learning about healthy weight 4. Obesity 5. Attention deficit hyperactivity disorder Adderall 20 mg tablet 6. Insomnia zolpidem 10 mg tablet Discussion Note: None recorded. Plan [...] BMI Blood Pressure 5 ft 4 in 209 lbs 35.9 kg/m2 112/78 mm[Hg] Lab Results None recorded. Allergies Code [...] Calculus; Osteoarthritis of Hip Lucrecia Shah MD: [address] [place] [phone], Ph. 02/25/2019 Staghorn Calculus; Chronic Pain Syndrome; Body Mass Index 30+ - Obesity; Obesity; Attention Deficit Hyperactivity Disorder; Insomnia Lucrecia Shah MD: [address] [place] [address], Ph. History of Present Illness Note:53yo female presents for two-month follow-up. Last visit 01/07/19. Since last visit, pt had two UTIs and lithotripsy on 02/02/[address] Green. Pt caught fragments of stone this time & brought them to Dr Green last Thursday. Has appt with Dr Green next Thursday02/28/19. Dr Green changed the left ureteral stent out on 02/02/[address] [facility]. Has had two lithotripsy procedures on left for large staghorn calculus. Recently completed 10day course of macrobid from 02/04/19 to 02/14/19. Still with urinary frequency, dysuria. Caught dark "sand" crystals.<div>Will likely have another KUB & will need stent removed. </div><div>Here today for medication refill.</div><div>
</div><div><div>Pt measuring home blood pressures - all bp <140/90 at home.</div><div>
</div> <div>Had three phone calls from Dr Isaac's office (Dr Anderson). Declined appt - planning to get hip replacements with Dr Cecil Gracia after kidney issues resolved.</div><div>
<div>Previously:</div><div><div><div>Still with hip pain & waiting to f/u for first appt with korina Aguirre [facility].</div><div >Pt had to postpone appt with Dr Cecil Gracia, ortho, for possible bilateral hip replacement surgeries. Was seen by ortho Dr Lala Allen, at [facility] and CT scan 08/24/18 was severe bilateral hip osteoarthritis with suspicion of early, bilateral femoral head ischemic necrosis. Dr Villa has referred pt to Dr Cecil Gracia. Ortho said no more steroid injections until hip replacements at pain management.</div><div>No ear pain today. No 'crackling' sound in ears. No fever. </div><div>
</div><div>Previously:
</div><div><div>On 09/29/18 had lithotripsy on right kidney for two small non-obstructing kidney stones in right kidney (8mm & 5mm). Was at [facility] with Dr Green, urologist. Had CT scan with large partially obstructing 2.6cm left intrarenal staghorn calculus with moderate left cortical thinning suggesting chronic obstruction (per CT scan 08/24/18). Pt notes no stones seen in strainer.
</div><div><div>
</div><div >Pt had follow-up with Dr. Haney, neurology on Apr 20, 2018, for idiopathic polyneuropathy- per pt, both the MRI brain from 03/19/18 and the EMG/NCS on 04/13/18 were both normal. Per pt, Dr. Haney is wondering about movement disorder/chorea and has referred pt to [facility] Movement disorder clinic, Dr. Peace Bray for evaluation.
</div><div><div>
</div><div>Was seen in past by pain management, Dr Federico Sewell at [facility].</div><div>Was seen in past by rheumatology (Dr Anderson) for elevated ESR. On prednisone in past. Had elevated ESR of 99 (was 68 in [facility] office in December 2017). </div></div>< /div></div></div><div>Seen by psych in past - Dr. Crow is no longer in pt's insurance network. Was with him for 12yrs. </div></div></div></div> Review of Systems:ROS as noted in the [...]
[2019-05-06] MEDS ORDERED: MEROPENEM 1GM 100 ML IV STA (21:58)
[2019-05-06] MEDS ORDERED: ACETAMINOPHEN 325 MG TAB PO ONE (22:00)
[2019-05-06] MEDS ORDERED: SODIUM CHLORIDE 0.9% 1000ML 1,000 ML IV SCH (22:00)
[2019-05-06] MEDS ORDERED: ULTRAM 50MG50 MG PO (22:48)
[2019-05-06] MEDS ORDERED: ZOLPIDEM TARTRA10 MG PO (22:48)
[2019-05-06] MEDS ORDERED: RANITIDINE HCL150 MG PO (22:48)
[2019-05-06] MEDS ORDERED: DEXTROAMP-AMPHE20 M1 PO (22:48)
[2019-05-06] MEDS ORDERED: FLUTICASONE PRO16 GM (22:48)
[2019-05-06] MEDS ORDERED: ATORVASTATIN CA10 MG PO (22:48)
[2019-05-06] MEDS ORDERED: CHLORHEXIDINE473 ML PO (22:48)
[2019-05-06] MEDS ORDERED: TIZANIDINE HCL4 MG PO (22:48)
[2019-05-06 22:49] LABS: BASOPHILS % 0.4 % (0.0-1.0); EOSINOPHILS % 0.2 % (0.0-6.0); HEMATOCRIT 38.9 % (34.2-44.1); HEMOGLOBIN 12.3 g/dL (12.0-16.0); LYMPHOCYTES # (AUTO) 1.5 (1.0-3.2); LYMPHOCYTES % 13.6 % (18.0-39.1); MEAN CORPUSCULAR HEMOGLOBIN 30.2 pg (28-32); MEAN CORPUSCULAR HGB CONC 31.6 g/dL (31-35); MEAN CORPUSCULAR VOLUME 95.6 fL (81-99); MONOCYTES # (AUTO) 0.7 (0.2-0.8); MONOCYTES % 6.6 % (4.4-11.3); NEUTROPHILS # (AUTO) 8.9 (2.1-6.9); NEUTROPHILS % 78.8 % (38.7-80.0); PLATELET COUNT 320 x10e3/uL (140-360); RED BLOOD COUNT 4.07 x10e6/uL (3.6-5.1); RED CELL DISTRIBUTION WIDTH 13.3 % (11.7-14.4)
[2019-05-06] MEDS ORDERED: MEROPENEM 1GM 0 ML IV ONE (22:54)
--- NOTE | 2019-05-06 22:58 | Diagnostic Imaging Report ---
EXAMINATION: CHEST SINGLE (PORTABLE) INDICATION: ^fever ^[id number] ^2208 ^Y COMPARISON: None FINDINGS: AP view TUBES and LINES: None. LUNGS: Lungs are well inflated. There is no evidence of pneumonia or pulmonary edema. PLEURA: No pleural effusion or pneumothorax. HEART AND MEDIASTINUM: The cardiomediastinal silhouette is unremarkable. BONES AND SOFT TISSUES: No acute osseous lesion. Soft tissues are unremarkable. UPPER ABDOMEN: No free air under the diaphragm. IMPRESSION: No acute thoracic abnormality. Signed by: Dr. Clint Brock MD on 05/06/2019 10:55 PM
[2019-05-06 23:11] LABS: ALANINE AMINOTRANSFERASE 10 IU/L (0-55); ALBUMIN 3.5 g/dL (3.5-5.0); ALKALINE PHOSPHATASE 132 IU/L (40-150); ANION GAP 15.9 mmol/L (8-16); BLOOD UREA NITROGEN 16 mg/dL (7-26); BUN/CREATININE RATIO 18 (6-25); CARBON DIOXIDE 25 mmol/L (22-29); CHLORIDE 101 mmol/L (98-107); CREATININE, SERUM 0.91 mg/dL (0.57-1.11); EST GLOMERULAR FILTRATION RATE > 60 ML/MIN (60-); GLUCOSE 104 mg/dL (74-118); POTASSIUM 3.9 mmol/L (3.5-5.1); SODIUM 138 mmol/L (136-145)
--- NOTE | 2019-05-06 23:18 | Diagnostic Imaging Report ---
EXAM: CT Abdomen and Pelvis WITHOUT contrast INDICATION: ^fever, h/o kidney stones, recent ureteral stent ^[id number] ^4 ^Y COMPARISON: None. TECHNIQUE: Abdomen and pelvis were scanned utilizing a multidetector helical scanner from the lung base to the pubic symphysis without administration of IV contrast. Absence of intravenous contrast decreases sensitivity for detection of focal lesions and vascular pathology. Coronal and sagittal reformations were obtained. Routine protocol was performed. IV CONTRAST: None ORAL CONTRAST: None COMPLICATIONS: None RADIATION DOSE: Total DLP: 610.86 mGy*cm Estimated effective dose: (DLP x 0.015 x size factor) mSv CTDIvol has been reviewed. It is below the limits set by the Radiation Protocol Committee (RPC). FINDINGS: LINES and TUBES: None. LOWER THORAX: Unremarkable. Small left Bochdalek hernia. HEPATOBILIARY: Unenhanced liver is unremarkable. No biliary ductal dilation. GALLBLADDER: No radio-opaque stones or sludge. No wall thickening. SPLEEN: No splenomegaly. PANCREAS: No focal masses or ductal dilatation. ADRENALS: No adrenal nodules KIDNEYS/URETERS: No right hydronephrosis. 6 mm right midpole calculus. Moderate left perinephric fat stranding. Limited for evaluation of renal parenchyma without intravenous contrast. Multifocal left renal cortical atrophy, especially in the lower pole area. Mild left hydroureteronephrosis. Admitting left renal superior pole collecting system. Multiple clusters of left renal calculi, measuring up to 1.5 cm in the lower pole, 0.9 cm midpole, and 1 cm in renal pelvis. GI TRACT: No abnormal distention, wall thickening, or evidence of bowel obstruction. Appendix is normal. PELVIC ORGANS/BLADDER: Small amount of nondependent air within bladder. Hysterectomy. LYMPH NODES: Nonspecific retroperitoneal lymph nodes, the largest in the left para-aortic region measuring 1 cm (series 3, image 73). VESSELS: Unremarkable. PERITONEUM / RETROPERITONEUM: No free air or fluid. BONES: Significant bilateral hip degenerative changes. Degenerative changes of spine. SOFT TISSUES: Unremarkable. IMPRESSION: 1. Right renal midpole subcentimeter nonobstructive calculus. No right hydronephrosis or evidence of obstructive urolithiasis. 2. Mildly atrophic left kidney with mild left hydroureteronephrosis. Left perirenal and periureteral fibrous stranding. Infectious process cannot be excluded. 3. Multiple clusters of left renal calculi. No evidence of obstructive urolithiasis. 4. Left renal superior pole collecting system and bladder air, likely related to recent instrumentation. Signed by: Dr. Clint Brock MD on 05/06/2019 11:15 PM
[2019-05-07 00:24] LABS: CLARITY,URINE CLEAR (CLEAR); COLOR,URINE YELLOW (YELLOW); LEUKOCYTE ESTERASE ,URINE NEGATIVE (NEGATIVE)
[2019-05-07 00:25] LABS: BILIRUBIN,URINE NEGATIVE (NEGATIVE); KETONES,URINE NEGATIVE (NEGATIVE); NITRITE,URINE NEGATIVE (NEGATIVE); PROTEIN,URINE DIPSTICK NEGATIVE (NEGATIVE); URINE UROBILINOGEN 0.2 mg/dL (0.2 - 1)
[2019-05-07 00:27] LABS: BACTERIA,URINE MODERATE /HPF; EPITHELIAL CELLS,URINE MODERATE /LPF
[2019-05-07] MEDS: SODIUM CHLORIDE 0.9% 1000ML 1,000 ML IV SCH ×4 (00:42→22:56)
--- OUTSIDE RECORDS SUMMARY | 2019-05-07 00:43 | XMS REPORT ---
Author [facility] Address Unknown Phone Unavailable Care Team Providers Care Trap Puller Name Role Phone Luis ARTHUR Unavailable Unavailable Problems This patient has no known problems. Allergies, Adverse Reactions, Alerts This patient has no known allergies or adverse reactions. Medications This patient has no known medications. Results Test Description Test Time Test Comments Text Results Atomic Results Result Comments CT ABDOMEN/PELVIS WO 2019-05-06 22:55:00 [place] [address] Patient Name: ANNA ARTEAGA MR #: [id number] : 1965 Age/Sex: 53/F Req #: [id number] Adm Physician: Ordered by: JAMI ARTHUR MD Report #: [id number] Location: ER Room/Bed: Procedure: [id number] CT/CT ABDOMEN/PELVIS WO Exam Date: 05/06/19 Exam Time: 2223 REPORT STATUS: Signed EXAM: CT Abdomen and Pelvis WITHOUT contrast INDICATION: fever, h/o kidney stones, recent ureteral stent [id number] Y COMPARISON: None. TECHNIQUE: Abdomen and pelvis were scanned utilizing a multidetector helical scanner from the lung base to the pubic symphysis without administration of IV contrast. Absence of intravenous contrast decreases sensitivity for detection of focal lesions and vascular pathology. Coronal and sagittal reformations were obtained. Routine protocol was performed. IV CONTRAST: None ORAL CONTRAST: None COMPLICATIONS: None RADIATION DOSE: Total DLP: 610.86 mGy*cm Estimated effective dose: (DLP x 0.015 x size factor) mSv CTDIvol has been reviewed. It is below the limits set by the Radiation Protocol Committee (RPC). FINDINGS: LINES and TUBES: None. LOWER THORAX: Unremarkable. Small left Bochdalek hernia. HEPATOBILIARY: Unenhanced liver is unremarkable. No biliary ductal dilation. GALLBLADDER: No radio-opaque stones or sludge. No wall thickening. SPLEEN: No splenomegaly. PANCREAS: No focal masses or ductal dilatation. ADRENALS: No adrenal nodules KIDNEYS/URETERS: No right hydronephrosis. 6 mm right midpole calculus. Moderate left perinephric fat stranding. Limited for evaluation of renal parenchyma without intravenous contrast. Multifocal left renal cortical atrophy, especially in the lower pole area. Mild left hydroureteronephrosis. Admitting left renal superior pole collecting system. Multiple clusters of left renal calculi, measuring up to 1.5 cm in the lower pole, 0.9 cm midpole, and 1 cm in renal pelvis. GI TRACT: No abnormal distention, wall thickening, or evidence of bowel obstruction. Appendix is normal. PELVIC ORGANS/BLADDER: Small amount of nondependent air within bladder. Hysterectomy. LYMPH NODES: Nonspecific retroperitoneal lymph nodes, the largest in the left para-aortic region measuring 1 cm (series 3, image 73). VESSELS: Unremarkable. PERITONEUM / RETROPERITONEUM: No free air or fluid. BONES: Significant bilateral hip degenerative changes. Degenerative changes of spine. SOFT TISSUES: Unremarkable. IMPRESSION: 1. Right renal midpole subcentimeter nonobstructive calculus. No right hydronephrosis or evidence of obstructive urolithiasis. 2. Mildly atrophic left kidney with mild left hydroureteronephrosis. Left perirenal and periureteral fibrous stranding. Infectious process cannot be excluded. 3. Multiple clusters of left renal calculi. No evidence of obstructive urolithiasis. 4. Left renal superior pole collecting system and bladder air, likely related to recent instrumentation. Signed by: Dr. Clint Alonzo MD on 05/06/2019 11:15 PM Dictated By: CLINT ALONZO MD Transcribed By: CORRINE on 05/06/197 COPY TO: JAMI ARTHUR MD CHEST SINGLE (PORTABLE) 2019-05-06 22:55:00 [place] [address] Patient Name: ANNA ARTEAGA MR #: [id number] : 1965 Age/Sex: 53/F Req #: [id number] Adm Physician: Ordered by: JAMI ARTHUR MD Report #: [id number] Location: ER Room/Bed: Procedure: [id number] DX/CHEST SINGLE (PORTABLE) Exam Date: 05/06/19 Exam Time: 2207 REPORT STATUS: Signed EXAMINATION: CHEST SINGLE (PORTABLE) INDICATION: fever [id number] Y COMPARISON: None FINDINGS: AP view TUBES and LINES: None. LUNGS: Lungs are well inflated. There is no evidence of pneumonia or pulmonary edema. PLEURA: No pleural effusion or pneumothorax. HEART AND MEDIASTINUM: The cardiomediastinal silhouette is unremarkable. BONES AND SOFT TISSUES: No acute osseous lesion. Soft tissues are unremarkable. UPPER ABDOMEN: No free air under the diaphragm. IMPRESSION: No acute thoracic abnormality. Signed by: Dr. Clint Alonzo MD on 05/06/2019 10:55 PM Dictated By: CLINT ALONZO MD 54 Transcribed By: CORRINE on 05/06/192254 COPY TO: JAMI ARTHUR MD
[2019-05-07] MEDS ORDERED: SODIUM CHLORIDE 0.9% 1000ML 1,000 ML IV ONE (00:45)
[2019-05-07] MEDS ORDERED: MORPHINE SULFATE 2 MG/ML SYR 1ML IV PRN (00:45)
--- NOTE | 2019-05-07 02:49 | NUR ---
PT GIVEN STRAINER TO STRAIN ALL URINE, VERBALIZED UNDERSTANDING
[2019-05-07] MEDS ORDERED: MEROPENEM 1GM 100 ML IV SCH (06:00)
[2019-05-07] MEDS: ONDANSETRON HCL INJ 2MG/ML 2ML 2 MG/ML VIAL IV PRN (06:18)
--- NOTE | 2019-05-07 06:46 | NUR ---
REPORT TO WHITNEY SEGAL
[2019-05-07] MEDS: MEROPENEM 1GM 100 ML IV SCH ×3 (09:57→22:56)
--- NOTE | 2019-05-07 13:05 | History and Physical ---
HISTORY OF PRESENT ILLNESS: A 53-year-old female, Ms. Brianne Rodriguez, who is disabled comes with abdominal pain. This is the patient of Dr. Eusebio Green, who had stent removed at [facility] for ureterolithiasis. The patient started to have some fever, started abdominal pain and the patient presented to the emergency room and was found to have other kidney stones. The patient was admitted with the same. Consult with Urology done and also the patient has been started on antibiotics. PAST MEDICAL HISTORY: History of ADHD, history of kidney stones as mentioned above, history of hyperlipidemia, history of chronic pain, history of osteonecrosis of bilateral hips, and history of insomnia. MEDICATIONS: She takes at home are atorvastatin 10 mg daily, chlorhexidine gluconate mouthwash, dextroamphetamine 20 mg twice a day, fluticasone in the nostrils, ranitidine 150 mg daily, Tizanidine 4 mg q.8 hours, tramadol 50 mg q.8 hours, and zolpidem 10 mg at nighttime. PAST SURGICAL HISTORY: History of urethral stents, history of multiple lithotripsies, history of hysterectomy, and a history of left knee ACL repair. ALLERGIES: THE PATIENT HAS NO DRUG ALLERGIES. SOCIAL HISTORY: No EtOH. No IV drug abuse and no smoking. FAMILY HISTORY: Noncontributory. REVIEW OF SYSTEMS: Positive for fever. Positive for chills. Positive for feeling fatigue. Positive for nausea. No vomiting. No diarrhea. No constipation. Back pain positive. No diplopia. No blurry vision. No hematochezia. No focal neurological changes. Positive for hip pain with osteonecrosis. PHYSICAL EXAMINATION: VITAL SIGNS: Temperature is 99.5, T-max is 102, pulse of 94, respirations of 16, blood pressure is 119/63, and a pulse oximetry of 100%. HEENT: Normocephalic and atraumatic. No icterus present. CVS: S1 and S2 normal. Regular rate and rhythm. ABDOMEN: Nontender and nondistended. Positive for right-sided CVA tenderness. EXTREMITIES: No clubbing, no cyanosis, and/or no edema. LABORATORY VALUES: Initial white count is 11,000 with no left shift. Lymphocyte count is 13.6. Chemistry shows sodium 138, potassium of 3.9, BUN of 16, and creatinine 0.91. Urine shows RBCs which are moderate, 11-20. Serology, influenza was negative. IMAGING STUDIES: 1. Abdominal CT done today showed right renal mid pole subcentimeter nonobstructive calculus, mildly atrophied left kidney with left hydroureteronephrosis, left perineal and periureteral fibrous stranding. Infectious process cannot be excluded. 2. Multiple clusters of left renal calculi. 3. Left renal superior pole collecting system and bladder likely related to recent instrumentation. MICROBIOLOGY: Pending urine culture and blood culture. ASSESSMENT: 1. Pyelonephritis. The patient has been started on Merrem q.8 hours. We will continue with this. Awaiting urine and blood cultures, which are pending. We will continue with fluid resuscitation for the febrile illness and also for flushing the kidney. A strainer has been given to the patient. Dr. Green has been consulted. 2. Osteonecrosis of the hip. Continue with pain medications as prescribed and prescribed morphine sulfate and also we will restart her muscle relaxant. 3. Attention deficit hyperactivity disorder. We will restart her medication. 4. Hyperlipidemia. Continue other medications. Further recommendation per clinical course. The patient is disabled and uses a walker secondary to her osteonecrosis. For further information, look in the chart and we will continue monitoring the patient with Dr. Green. MD ELLYN CordobaJ/MODL /[id number]
--- NOTE | 2019-05-07 15:30 | NUR ---
RECEIVED PT FROM ER. DINO 4. EDUCATED PT ABOUT FALL PRECAUTIONS. CALL LIGHT WITH IN EASY REACH. INSTRUCTED PT TO USE CALL LIGHT FOR ANY NEEDS. PT VERBALIZED UNDERSTANDING. BED IS LOW AND LOCKED. PT DENIES NEEDS AT THIS TIME.
--- NOTE | 2019-05-07 15:40 | NUR ---
INFORMED ABOUT PT ARRIVAL TO DR. MANN AND DR. DACOSTA.
[2019-05-07 16:00] VITALS: BP 127/66
--- NOTE | 2019-05-07 19:00 | NUR ---
BEDSIDE SHIFT REPORT GIVEN TO THE GRID CASTER RN. PT DENIED FURTHER NEEDS.
--- NOTE | 2019-05-07 19:20 | NUR ---
Pt visited in room during nursing rounds. Patient alert and oriented x3. No distress noted. Pt ambulatory using rolling walker prn. V/S stable at this time. On IVF (NS at 125ml/hr) and on scheduled IV antibiotics. Call joseph within reach.
[2019-05-07] MEDS: ACETAMINOPHEN 325 MG TAB PO PRN (19:43)
[2019-05-07 20:30] VITALS: BP 119/65
--- NOTE | 2019-05-07 20:51 | NUR ---
Called Dr. Vyas and informed pt requested for sleeping pill. MD aware and ordered Ambien 10mg PO HS and continue some home meds.
[2019-05-07] MEDS ORDERED: FLUTICASONE PROPIONATE NASAL SPRAY NS PRN (21:00)
[2019-05-07] MEDS ORDERED: NON-FORMULARY MEDICATION (Zolpidem Tartrate 10 MG) PO SCH (21:00)
[2019-05-07] MEDS: ZOLPIDEM TARTRATE 10 MG TAB PO SCH (22:56)
[2019-05-07] MEDS: TIZANIDINE HCL 4 MG TAB PO SCH (22:56)
[2019-05-08] VITALS (9 sets, daily range): BP systolic 90–146; BP diastolic 50–65
[2019-05-08] MEDS: MEROPENEM 1GM 100 ML IV SCH ×3 (06:00→21:28)
[2019-05-08] MEDS: TIZANIDINE HCL 4 MG TAB PO SCH ×3 (06:01→21:28)
[2019-05-08 06:05] LABS: BASOPHILS % 0.3 % (0.0-1.0); EOSINOPHILS # (AUTO) 0.1 (0.0-0.4); EOSINOPHILS % 0.7 % (0.0-6.0); HEMATOCRIT 32.8 % (34.2-44.1); HEMOGLOBIN 10.1 g/dL (12.0-16.0); LYMPHOCYTES # (AUTO) 2.5 (1.0-3.2); LYMPHOCYTES % 25.7 % (18.0-39.1); MEAN CORPUSCULAR HGB CONC 30.8 g/dL (31-35); MEAN CORPUSCULAR VOLUME 97.3 fL (81-99); MONOCYTES # (AUTO) 1.1 (0.2-0.8); MONOCYTES % 10.9 % (4.4-11.3); NEUTROPHILS # (AUTO) 6.1 (2.1-6.9); NEUTROPHILS % 62.1 % (38.7-80.0); PLATELET COUNT 248 x10e3/uL (140-360); RED BLOOD COUNT 3.37 x10e6/uL (3.6-5.1); RED CELL DISTRIBUTION WIDTH 13.5 % (11.7-14.4)
[2019-05-08 06:54] LABS: ALANINE AMINOTRANSFERASE 8 IU/L (0-55); ALBUMIN 2.8 g/dL (3.5-5.0); ALBUMIN/GLOBULIN RATIO 0.9 (0.8-2.0); ALKALINE PHOSPHATASE 107 IU/L (40-150); ANION GAP 12.2 mmol/L (8-16); BLOOD UREA NITROGEN 10 mg/dL (7-26); BUN/CREATININE RATIO 12 (6-25); CALCIUM 9.5 mg/dL (8.4-10.2); CARBON DIOXIDE 26 mmol/L (22-29); CHLORIDE 108 mmol/L (98-107); CREATININE, SERUM 0.85 mg/dL (0.57-1.11); EST GLOMERULAR FILTRATION RATE > 60 ML/MIN (60-); GLUCOSE 94 mg/dL (74-118); POTASSIUM 4.2 mmol/L (3.5-5.1); SODIUM 142 mmol/L (136-145)
--- NOTE | 2019-05-08 07:05 | NUR ---
Received patient lying in bed. Respiration even and unlabored without SOB. Call light in reach.
[2019-05-08] MEDS ORDERED: NON-FORMULARY MEDICATION (Ranitidine Hcl 150 MG) PO SCH (09:00)
[2019-05-08] MEDS: FAMOTIDINE 20 MG TAB PO SCH (09:27)
[2019-05-08] MEDS: CHLORHEXIDINE GLUCONATE 0.12% SOLN 473 ML BTL MT SCH ×2 (09:27→15:26)
[2019-05-08] MEDS: ATORVASTATIN 10 MG TAB PO SCH (09:27)
[2019-05-08] MEDS: SODIUM CHLORIDE 0.9% 1000ML 1,000 ML IV SCH ×3 (09:27→20:50)
[2019-05-08] MEDS: ACETAMINOPHEN 325 MG TAB PO PRN ×2 (09:35→17:20)
--- NOTE | 2019-05-08 10:10 | Progress Note ---
DATE: SUBJECTIVE: A 53-year-old female admitted for pyelonephritis. The patient is currently still complaining of some back pain and abdominal pain. No chest pain noted. No shortness of breath. OBJECTIVE: VITAL SIGNS: Temperature is 97.9, T-max of 100.3, pulse of 85, respirations of 18, blood pressure is 130/63, pulse oximetry of 99%. HEENT: Normocephalic, atraumatic. Pupils reactive to light and accommodation. CVS: S1 and S2 normal. Regular rate and rhythm. ABDOMEN: Nontender, nondistended. CVA tenderness present. EXTREMITIES: No clubbing, no cyanosis, and/or no edema. LABORATORY DATA: From today hemoglobin is 10.5, hematocrit of 32.8, white count is down to 9.8 from 11.26 yesterday. No left shift present. Chemistries, chloride of 108, BUN of 10, creatinine 0.85. Urine was moderate bacteria. MICROBIOLOGY: Urine cultures are pending. Blood cultures negative for 24 hours. ASSESSMENT: A 53-year-old lady with, 1. Pyelonephritis. Continue on Merrem q.8 hours right now. Awaiting cultures. 2. Osteonecrosis of the hip. Continue with the pain medication. The patient needs a walker. 3. Attention deficit hyperactivity disorder. We will hold back on her Adderall at this time. 4. Hyperlipidemia. Continue on medications. Further recommendation as per clinical course. We will continue to monitor the patient and discharge pending cultures from the urine also from urological evaluation. MD SELVIN Cordoba/ELIANAL /[id number]
--- NOTE | 2019-05-08 18:51 | NUR ---
Report given to shift stacker. Patient awake, alert .Respiration even and unlabored without SOB. Call light in reach.
[2019-05-08] MEDS: ZOLPIDEM TARTRATE 10 MG TAB PO SCH (21:28)
[2019-05-09] VITALS (8 sets, daily range): BP systolic 90–133; BP diastolic 47–67
[2019-05-09] MEDS: SODIUM CHLORIDE 0.9% 1000ML 1,000 ML IV SCH ×4 (00:35→22:22)
[2019-05-09] MEDS: TIZANIDINE HCL 4 MG TAB PO SCH ×3 (05:31→21:36)
[2019-05-09] MEDS: MEROPENEM 1GM 100 ML IV SCH ×3 (05:31→21:12)
--- NOTE | 2019-05-09 07:00 | NUR ---
BEDSIDE SHIFT REPORT RECEIVED FROM THE THERAPY COORDINATOR RN. PT FAMILY AT BEDSIDE. EDUCATED PT ABOUT FALL PRECAUTIONS. SIDE RAILS X 2. CALL LIGHT WITH IN EASY REACH. INSTRUCTED PT TO USE CALL LIGHT FOR ALL NEEDS. PT VERBALIZED UNDERSTANDING. PT DENIES NEEDS AT THIS TIME.
[2019-05-09] MEDS: FAMOTIDINE 20 MG TAB PO SCH (08:00)
[2019-05-09] MEDS: ATORVASTATIN 10 MG TAB PO SCH (08:00)
[2019-05-09] MEDS: CHLORHEXIDINE GLUCONATE 0.12% SOLN 473 ML BTL MT SCH ×2 (08:01→16:39)
--- NOTE | 2019-05-09 09:51 | Progress Note ---
DATE: SUBJECTIVE: The patient is a 53-year-old female, comes in with acute pyelonephritis. No chest pain today. No shortness of breath. The patient has fever. OBJECTIVE: VITAL SIGNS: Temperature is 98.7, T-max is 98.7, pulse of 76, respirations of 19, blood pressure is 133/67, pulse oximetry of 98%. HEENT: Normocephalic, atraumatic. Pupils reactive to light and accommodation. CVS: S1 and S2 normal. Regular rate and rhythm. ABDOMEN: Soft, nontender, nondistended. CVA, no tenderness present today. EXTREMITIES: No clubbing, no cyanosis, no edema. LABORATORY VALUES: Yesterday, white count had decreased to 9.80. Sodium is 140 and potassium of 4.2. MICROBIOLOGY: Urine culture preliminary no growth in the last 18 to 24 hours. ASSESSMENT: 1. Pyelonephritis. Continue Merrem q.8. Awaiting culture still. 2. Osteonecrosis of the hip. 3. Attention deficit disorder. 4. Hyperlipidemia. PLAN: Continue Merrem. Can be discharged home in about a day or 2 if cultures are negative on a broad-spectrum antibiotic. Further recommendation per course. We will continue to monitor the patient. MD SELVIN Cordoba/MODL /[id number]
[2019-05-09] MEDS: ACETAMINOPHEN 325 MG TAB PO PRN (10:08)
--- NOTE | 2019-05-09 19:00 | NUR ---
BEDSIDE SHIFT REPORT GIVEN TO THE SECURITY SYSTEMS ENGINEER RN. PT DENIES NEEDS AT THIS TIME.
[2019-05-09] MEDS: ZOLPIDEM TARTRATE 10 MG TAB PO SCH (21:35)
[2019-05-10] VITALS (8 sets, daily range): BP systolic 108–136; BP diastolic 53–67
[2019-05-10] MEDS: MEROPENEM 1GM 100 ML IV SCH ×3 (05:39→21:05)
[2019-05-10] MEDS: TIZANIDINE HCL 4 MG TAB PO SCH ×3 (05:39→21:05)
--- NOTE | 2019-05-10 06:57 | Progress Note ---
DATE: SUBJECTIVE: The patient is a 53-year-old female with chronic kidney infections. The patient had a stent placed and removed. The developed infection comes in with pyelonephritis, currently on Merrem. No changes. CVA tenderness is better and pain is better in the abdomen. The patient has no chest pain and no shortness of breath and no diarrhea. OBJECTIVE: VITAL SIGNS: Temperature is 97.9, pulse of 85, respirations of 18, blood pressure is 133/63, pulse oximetry of 97% O2 delivery on room air. HEENT: Normocephalic, atraumatic. Pupils are reactive to light and accommodation. CVS: S1 and S2 normal. Regular rate and rhythm. ABDOMEN: Nontender, nondistended. No CVA tenderness. EXTREMITIES: No clubbing, no cyanosis, no edema. LABORATORY VALUES: White count is down to 9.87 and BUN and creatinine have been normal. ASSESSMENT: 1. Pyelonephritis. Continue Merrem. Patient's cultures have been negative for osteonecrosis of the hip. Continue with current care. 2. Attention deficit disorder. 3. Hyperlipidemia. PLAN: Continue Merrem. The patient's cultures have been negative. The patient can be discharged home [facility] with Augmentin if okay with Dr. Green. Stents and further procedure depending on urological consultation. The patient can be discharged. Further recommendation per clinical course as an outpatient basis. MD ELLYN CordobaJ/MODL /[id number]
--- NOTE | 2019-05-10 07:00 | NUR ---
BEDSIDE SHIFT REPORT RECEIVED FROM THE AUDIOLOGY ASSISTANT RN. EDUCATED PT ABOUT FALL PRECAUTIONS. SIDE RAILS X 2. CALL LIGHT WITH IN EASY REACH. INSTRUCTED PT TO USE CALL LIGHT FOR ALL NEEDS. PT VERBALIZED UNDERSTANDING. PT DENIES NEEDS AT THIS TIME.
--- NOTE | 2019-05-10 08:00 | NUR ---
PT REFUSED BED ALARM AND FALL PREVENTION SOCKS.
[2019-05-10] MEDS: FAMOTIDINE 20 MG TAB PO SCH (08:19)
[2019-05-10] MEDS: ATORVASTATIN 10 MG TAB PO SCH (08:19)
[2019-05-10] MEDS: SODIUM CHLORIDE 0.9% 1000ML 1,000 ML IV SCH ×2 (08:19→16:35)
[2019-05-10] MEDS: CHLORHEXIDINE GLUCONATE 0.12% SOLN 473 ML BTL MT SCH ×2 (08:19→17:00)
[2019-05-10] MEDS: VALACYCLOVIR HCL 500 MG TAB PO SCH ×2 (08:19→21:05)
--- NOTE | 2019-05-10 10:45 | NUR ---
ASSESSMENT: Spiritual concern Pt laments over challenges in health and family relationships. Pt hopeful for eventual hip replacement. Pt identifies as Yazidi. Intervention: Provided unhurried empathic listening. Facilitated storytelling. Provided prayer and information on how to contact assistant front office manager, if needed. Outcome: No need to follow at this time. JACQUELINE Casarezlain Spiritual Care Department O: [phone] Pager: [phone] ([phone] number calling from)
--- NOTE | 2019-05-10 19:00 | NUR ---
BEDSIDE SHIFT REPORT GIVEN TO THE POLICE CAPTAIN PRECINCT RN. PT DENIED FURTHER NEEDS
[2019-05-10] MEDS: ZOLPIDEM TARTRATE 10 MG TAB PO SCH (21:05)
[2019-05-10] MEDS: TRAMADOL HCL 50 MG TAB PO PRN (21:53)
[2019-05-11] VITALS: BP 113/57
[2019-05-11] MEDS: SODIUM CHLORIDE 0.9% 1000ML 1,000 ML IV SCH (00:35)
[2019-05-11 04:00] VITALS: BP 135/64
[2019-05-11] MEDS: MEROPENEM 1GM 100 ML IV SCH (05:17)
[2019-05-11] MEDS: TIZANIDINE HCL 4 MG TAB PO SCH (05:17)
[2019-05-11] MEDS: ONDANSETRON HCL INJ 2MG/ML 2ML 2 MG/ML VIAL IV PRN (05:27)
[2019-05-11 08:00] VITALS: BP 120/65
[2019-05-11] MEDS: VALACYCLOVIR HCL 500 MG TAB PO SCH (08:17)
[2019-05-11] MEDS: CHLORHEXIDINE GLUCONATE 0.12% SOLN 473 ML BTL MT SCH (08:17)
[2019-05-11] MEDS: FAMOTIDINE 20 MG TAB PO SCH (08:17)
[2019-05-11] MEDS: ATORVASTATIN 10 MG TAB PO SCH (08:17)
[2019-05-11 08:20] VITALS: BP 120/65
--- NOTE | 2019-05-11 08:24 | Progress Note ---
DATE: SUBJECTIVE: A 53-year-old female, comes in with pyelonephritis. The patient had a stent removed by Dr. Green. Pain is better in the abdomen, but the patient complains of some facial pain and had a herpetic vesicle yesterday. No chest pain. No shortness of breath. Headache from the eye pain. OBJECTIVE: VITAL SIGNS: Temperature is 97.9, pulse of 69, respirations of 18, blood pressure is 113/57. HEENT: Normocephalic, atraumatic. The patient's eyes are normal. Conjunctivae have no injection present and no epitrochlear lymph nodes. CVS: S1 and S2 are normal. Regular rate and rhythm. ABDOMEN: Nontender, nondistended. No CVA tenderness present. EXTREMITIES: No clubbing, no cyanosis, no edema. LABORATORY VALUES: Hemoglobin and hematocrit have stabilized and also the patient's white count is stabilized. Chemistries also within normal limits. MICROBIOLOGY: Urine culture, no growth. Blood culture, no growth. ASSESSMENT: A 53-year-old lady with: 1. Pyelonephritis. Continue Merrem until the patient is discharged. Dr. Green to decide whether there is a stent to be placed or not. 2. Attention deficit disorder. We will hold back on her medications. 3. Hyperlipidemia. Continue medications. 4. For osteonecrosis of the hip, continue care. PLAN: Disposition will depend on Urology. The patient can be discharged on Augmentin if no urological procedures will be done today. MD SELVIN Cordoba/ELIANAL /[id number]
[2019-05-11] MEDS: TRAMADOL HCL 50 MG TAB PO PRN (08:25)
[2019-05-11 12:00] VITALS: BP 120/73
[2019-05-11] MEDS ORDERED: AUGMENTIN 875-1 EACH PO (12:35)
--- NOTE | 2019-05-11 13:00 | NUR ---
patient alert and oriented. discharge instructions given at this time, patient verbalized understanding. IV discontinued, catheter in tact and small dressing applied. patient to be wheeled out to personal auto for daughter to drive home.
== END 2019-05-11 14:08 | disposition home or self-care (01) | DRG 698 ==
LOC: ER 21:34 → ERHOLD 05-07 00:40 → MED/SURG2 05-07 14:54
PROVIDERS: ADMIT Family Medicine; ATTEND Family Medicine
DX: T83.593A Infection and inflammatory reaction due to other urinary stents, initial encounter (principal); A41.9 Sepsis, unspecified organism; N10 Acute pyelonephritis; M87.88 Other osteonecrosis, other site; N13.2 Hydronephrosis with renal and ureteral calculous obstruction; E78.5 Hyperlipidemia, unspecified; Z87.442 Personal history of urinary calculi; F90.9 Attention-deficit hyperactivity disorder, unspecified type; N39.41 Urge incontinence; D64.9 Anemia, unspecified; E66.9 Obesity, unspecified; Z68.35 Body mass index [BMI] 35.0-35.9, adult
CPT/HCPCS: 36415; 71045; 74176; 80053; 81001; 83605; 85025; 87040; 87086; 87400; 96374; 99284; J2270; J2405; J7030